=== PATIENT | female | born 1995 | race African-American/Black ===

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

== ENCOUNTER 2017-08-23 09:18 | Emergency (ER) | payer MEDICAID ==
[2017-08-23 09:36] LABS: ABSOLUTE EOSINOPHILS # (AUTO) 0.2 10^3/uL (0.0-0.6); ABSOLUTE LYMPHOCYTES (AUTO) 2.6 10^3/uL (0.5-4.7); ABSOLUTE MONOCYTES (AUTO) 0.7 10^3/uL (0.1-1.4); BASOPHILS % (AUTO) 0.2 % (0-2); EOSINOPHILS % (AUTO) 3.7 % (0-6); HEMATOCRIT 35.7 % (36.0-47.0); HEMOGLOBIN 11.4 g/dL (12.0-15.5); MEAN CORPUSCULAR HEMOGLOBIN 27.4 pg (27.0-33.4); MEAN CORPUSCULAR HGB CONC 31.9 g/dL (32.0-36.0); MEAN CORPUSCULAR VOLUME 86 fl (80-97); MONOCYTES % (AUTO) 12.1 % (3-13); PLATELET COUNT 282 10^3/uL (150-450); RED BLOOD COUNT 4.15 10^6/uL (3.72-5.28); RED CELL DISTRIBUTION WIDTH 16.1 % (11.5-14.0); TOTAL CELLS COUNTED % (AUTO) 100 %; WHITE BLOOD COUNT 5.5 10^3/uL (4.0-10.5)
[2017-08-23 09:50] LABS: ALANINE AMINOTRANSFERASE 23 U/L (9-52); ALBUMIN 4.3 g/dL (3.5-5.0); ALKALINE PHOSPHATASE 32 U/L (38-126); ANION GAP 14 (5-19); ASPARTATE AMINO TRANSFERASE 21 U/L (14-36); BILIRUBIN,DIRECT 0.3 mg/dL (0.0-0.4); BILIRUBIN,TOTAL 0.4 mg/dL (0.2-1.3); BLOOD UREA NITROGEN 14 mg/dL (7-20); CALCIUM 9.6 mg/dL (8.4-10.2); CARBON DIOXIDE 24 mmol/L (22-30); CHLORIDE 107 mmol/L (98-107); GLUCOSE 73 mg/dL (75-110); POTASSIUM 4.5 mmol/L (3.6-5.0); SODIUM 145.3 mmol/L (137-145); TOTAL PROTEIN 7.8 g/dL (6.3-8.2)
[2017-08-23 10:48] LABS: RBCS (WET MOUNT) 4+ RBCS SEEN; T.VAGINALIS (WET MOUNT) NO TRICHOMONAS SEEN; WBCS (WET MOUNT) RARE WBCS SEEN; YEAST (WET MOUNT) NO YEAST SEEN
[2017-08-23 10:52] LABS: APPEARANCE,URINE CLOUDY; BILIRUBIN,URINE NEGATIVE (NEGATIVE); COLOR,URINE YELLOW; GLUCOSE, URINE NEGATIVE (NEGATIVE); KETONES,URINE NEGATIVE (NEGATIVE); LEUKOCYTE ESTERASE,URINE LARGE (NEGATIVE); NITRITE,URINE NEGATIVE (NEGATIVE); PROTEIN,URINE NEGATIVE (NEGATIVE); URINE SPECIFIC GRAVITY 1.012; UROBILINOGEN,URINE NEGATIVE mg/dL (<2.0)
--- NOTE | 2017-08-23 10:59 | ER Document Report ---
ED General - General Chief Complaint: Vaginal Bleeding Stated Complaint: VAGINAL BLEEDING Time Seen by Provider: 08/23/17 09:22 Mode of Arrival: Ambulatory Information source: Patient Notes: 22-year-old female presents with complaints of vaginal bleeding that started this morning. Patient notes she has taken 3 home test in the past week have been positive, she is concerned about a miscarriage, patient called EMS from work for her bleeding. Patient denies any fevers or chills TRAVEL OUTSIDE OF THE [place] IN LAST 30 DAYS: No - HPI Onset: Just prior to arrival Onset/Duration: Sudden Quality of pain: Cramping Severity: Mild Pain Level: 1 Associated symptoms: Other Exacerbated by: Denies Relieved by: Denies Similar symptoms previously: No Recently seen / treated by doctor: No - Related Data Allergies/Adverse Reactions: No Known Allergies Allergy (Verified 08/23/17 11:00) Past Medical History - Social History Smoking Status: Never Smoker Cigarette use (# per day): No Chew tobacco use (# tins/day): No Smoking Education Provided: No Frequency of alcohol use: None Drug Abuse: None Family History: Other - Adopted Patient has suicidal ideation: No Patient has homicidal ideation: No - Past Medical History Cardiac Medical History: Denies: Hx Coronary Artery Disease, Hx Heart Attack, Hx Hypertension Pulmonary Medical History: Reports: Hx Asthma - inhalers if needed Denies: Hx Bronchitis, Hx COPD, Hx Pneumonia Neurological Medical History: Denies: Hx Cerebrovascular Accident, Hx Seizures Renal/ Medical History: Denies: Hx Peritoneal Dialysis Musculoskeltal Medical History: Denies Hx Arthritis Past Surgical History: Reports: Hx Adenoidectomy, Hx Section, Hx Tonsillectomy - Immunizations Immunizations up to date: Yes Hx Diphtheria, Pertussis, Tetanus Vaccination: Yes Review of Systems - Review of Systems Notes: REVIEW OF SYSTEMS: CONSTITUTIONAL : Denies fever, chills, or sweats. Denies recent illness. EENT: Denies eye, ear, throat, or mouth pain or symptoms. Denies nasal or sinus congestion or discharge. Denies throat, tongue, or mouth swelling or difficulty swallowing. CARDIOVASCULAR: Denies chest pain. Denies palpitations or racing or irregular heart beat. Denies ankle edema. RESPIRATORY: Denies cough, cold, or chest congestion. Denies shortness of breath, difficulty breathing, or wheezing. GASTROINTESTINAL: Denies abdominal pain or distention. Denies nausea, vomiting , or diarrhea. Denies blood in vomitus, stools, or per rectum. Denies black, tarry stools. Denies constipation. GENITOURINARY: Denies difficulty urinating, painful urination, burning, frequency, blood in urine, or discharge. FEMALE GENITOURINARY: Admits vaginal bleeding MUSCULOSKELETAL: Denies back or neck pain or stiffness. Denies joint pain or swelling. SKIN: Denies rash, lesions or sores. HEMATOLOGIC : Denies easy bruising or bleeding. LYMPHATIC: Denies swollen, enlarged glands. NEUROLOGICAL: Denies confusion or altered mental status. Denies passing out or loss of consciousness. Denies dizziness or lightheadedness. Denies headache. Denies weakness or paralysis or loss of use of either side. Denies problems with gait or speech. Denies sensory loss, numbness, or tingling. Denies seizures. PSYCHIATRIC: Denies anxiety or stress. Denies depression, suicidal ideation, or homicidal ideation. ALL OTHER SYSTEMS REVIEWED AND NEGATIVE. PHYSICAL EXAMINATION: GENERAL: Well-appearing, well-nourished and in no acute distress. HEAD: Atraumatic, normocephalic. EYES: Pupils equal round and reactive to light, extraocular movements intact, conjunctiva are normal. ENT: Nares patent, oropharynx clear without exudates. Moist mucous membranes. NECK: Normal range of motion, supple without lymphadenopathy LUNGS: Breath sounds clear to auscultation bilaterally and equal. No wheezes rales or rhonchi. HEART: Regular rate and rhythm without murmurs ABDOMEN: Soft, nontender, nondistended abdomen. No guarding, no rebound. No masses appreciated. Female : Pelvic examination performed with nurse in the room notes both new and old blood Musculoskeletal: Normal range of motion, no pitting or edema. No cyanosis. NEUROLOGICAL: Cranial nerves grossly intact. Normal speech, normal gait. Normal sensory, motor exams PSYCH: Normal mood, normal affect. SKIN: Warm, Dry, normal turgor, no rashes or lesions noted. Dictation was performed using Tr[employer] recognition software Physical Exam - Vital signs Vitals: Temp Pulse Resp BP Pulse Ox 98.1 F 88 18 109/64 99 08/23/17 09:45 08/23/17 09:45 08/23/17 09:45 08/23/17 09:45 08/23/17 09:45 Course - Re-evaluation Re-evalutation: 08/23/17 14:42 Patient's hCG was negative, she is not , this is her menses, she is otherwise stable, wet prep and GC chlamydia were negative as well After performing a Medical Screening Examination, I estimate there is LOW risk for ACUTE APPENDICITIS, BOWEL OBSTRUCTION, ACUTE CHOLECYSTITIS, PERFORATED DIVERTICULITIS, INCARCERATED HERNIA, PANCREATITIS, PELVIC INFLAMMATORY DISEASE, PERFORATED ULCER, ECTOPIC , or TUBO-OVARIAN ABSCESS, thus I consider the discharge disposition reasonable. Also, there is no evidence or peritonitis , sepsis, or toxicity. I have reevaluated this patient multiple times and no significant life threatening changes are noted. The patient and I have discussed the diagnosis and risks, and we agree with discharging home with close follow-up with the understanding that symptoms and presentations can change. We also discussed returning to the Emergency Department immediately if new or worsening symptoms occur. We have discussed the symptoms which are most concerning (e.g., bloody stool, fever, changing or worsening pain, vomiting) that necessitate immediate return. - Vital Signs Vital signs: Temp Pulse Resp BP Pulse Ox 98.1 F 69 18 119/80 100 08/23/17 10:54 08/23/17 10:54 08/23/17 10:54 08/23/17 10:54 08/23/17 10:54 - Laboratory Result Diagrams: 08/23/17 09:15 08/23/17 09:15 Laboratory results interpreted by me: 08/23/17 08/23/17 08/23/17 09:15 09:15 10:04 Hgb 11.4 L Hct 35.7 L MCHC 31.9 L RDW 16.1 H Seg Neutrophils % 37.0 L Lymphocytes % 47.0 H Sodium 145.3 H Glucose 73 L Alkaline Phosphatase 32 L Urine Blood LARGE H Ur Leukocyte Esterase LARGE H Discharge - Discharge Clinical Impression: Negative test, Vaginal bleeding Condition: Stable Disposition: HOME, SELF-CARE Instructions: Vaginal Bleeding ([facility]) Referrals: SMITHA GREER MD [Primary Care Provider] - Follow up as needed
[2017-08-23 11:22] VITALS: BP 109/64
[2017-08-23 12:10] LABS: CHLAM PCR NOT DETECTED (NOT DETECT); GON PCR NOT DETECTED (NOT DETECT)
== END 2017-08-23 11:22 | disposition home or self-care (01) ==
LOC: ER 09:18
DX: Z32.02 Encounter for pregnancy test, result negative (principal); N93.9 Abnormal uterine and vaginal bleeding, unspecified
CPT/HCPCS: 36415; 80053; 81001; 84702; 85025; 87210; 87491; 87591; 99284

== ENCOUNTER 2017-10-31 18:34 | Emergency (ER) | payer MEDICAID ==
[2017-10-31 18:43] VITALS: BP 119/74
[2017-10-31] MEDS ORDERED: ONDANSETRON 4 MG TAB.RAPDIS PO ONE (19:01)
--- NOTE | 2017-10-31 19:02 | ER Document Report ---
ED Medical Screen (RME) - General Chief Complaint: Vomiting Stated Complaint: VOMITING,DIZZYNESS Time Seen by Provider: 10/31/17 18:57 Mode of Arrival: Wheelchair Information source: Patient Notes: 22 y.o female with a PMHx of asthma presents to the ED via EMS with generalized weakness, dizziness and vomiting of onset yesterday. She reports a total 6 episodes of vomiting and also notes upper abd pain which she describes as a cramping. EMS reports a BGL of 57 and gave oral glucose en route. Pt denies any travel out of the country, camping or any contact with others of similar sx. Pt reports a PSHx of hernia repair. Pt denies any other medical issues. I have greeted and performed a rapid initial assessment of the patient. A comprehensive ED assessment and evaluation of the patient, analysis of test results, and completion of the medical decision making process will be conducted by additional ED providers. PHYSICAL EXAM: General: Alert. HEENT: Normocephalic. Atraumatic. Neck: Supple. Cardiovascular: RRR Respiratory: CTAB Abdominal: No distension. mild mid abd tenderness consistent with hx of hernia surgery. Extremities: Moves all four extremities. Neurological: Normal cognition. AAOx4. Normal speech. Psychological: Normal affect. Normal Mood. Skin: Warm. Dry. Normal color. TRAVEL OUTSIDE OF THE [place] IN LAST 30 DAYS: No - Related Data Allergies/Adverse Reactions: No Known Allergies Allergy (Verified 10/31/17 19:02) Past Medical History - Past Medical History Cardiac Medical History: Denies: Hx Coronary Artery Disease, Hx Heart Attack, Hx Hypertension Pulmonary Medical History: Reports: Hx Asthma - inhalers if needed Denies: Hx Bronchitis, Hx COPD, Hx Pneumonia Neurological Medical History: Denies: Hx Cerebrovascular Accident, Hx Seizures Renal/ Medical History: Denies: Hx Peritoneal Dialysis Musculoskeltal Medical History: Denies Hx Arthritis Past Surgical History: Reports: Hx Adenoidectomy, Hx Section, Hx Tonsillectomy - Immunizations Immunizations up to date: Yes Hx Diphtheria, Pertussis, Tetanus Vaccination: Yes Physical Exam - Vital signs Vitals: Pulse Resp BP Pulse Ox 77 16 119/74 100 10/31/17 18:41 10/31/17 18:41 10/31/17 18:41 10/31/17 18:41 Course - Vital Signs Vital signs: Temp Pulse Resp BP Pulse Ox 77 16 119/74 100 10/31/17 18:41 10/31/17 18:41 10/31/17 18:41 10/31/17 18:41 Doctor's Discharge - Discharge Referrals: SMITHA GREER MD [Primary Care Provider] - Follow up as needed Scribe Documentation - Scribe Written by Scribe:: Brant Montero 10/31/17 400 acting as scribe for :: Carlos
[2017-10-31] MEDS ORDERED: NORMAL SALINE 1000 ML 1,000 ML IV ONE (20:08)
--- NOTE | 2017-10-31 20:12 | ER Document Report ---
ED General - General Chief Complaint: Vomiting Stated Complaint: VOMITING,DIZZYNESS Time Seen by Provider: 10/31/17 18:57 Mode of Arrival: Wheelchair TRAVEL OUTSIDE OF THE [place] IN LAST 30 DAYS: No - HPI Notes: Patient is a 22-year-old female no significant past medical history who presents to the ED complaining of intermittent generalized abdominal cramping, nausea/vomiting 1 day. Pt did receive glucose via EMS on her way in for a glucose of 57. Pt has had occ HUANG's, but currently does not have one. Patient states that she vomited twice yesterday and 4 times today. She has had a decreased p.o. intake. She is urinating normally and having normal bowel movements. She has not had any hematemesis. Patient states that she currently does not have any abdominal pain. Her last menstrual period was 2-3 weeks ago. She has not had any vaginal discharge, odor, or bleeding. Denies any drug allergies. No other concerns or complaints. Denies any current headache, fever , head injury, neck pain, URI, sore throat, chest pain, palpitations, syncope, cough, shortness of breath, wheeze, dyspnea, diarrhea, urinary retention, dysuria, hematuria, back pain, joint pain, or rash. - Related Data Allergies/Adverse Reactions: No Known Allergies Allergy (Verified 10/31/17 19:02) Past Medical History - General Information source: Patient - Social History Smoking Status: Current Every Day Smoker Chew tobacco use (# tins/day): No Frequency of alcohol use: Rare Drug Abuse: None Family History: Other - Adopted Patient has suicidal ideation: No Patient has homicidal ideation: No - Past Medical History Cardiac Medical History: Denies: Hx Coronary Artery Disease, Hx Heart Attack, Hx Hypertension Pulmonary Medical History: Reports: Hx Asthma - inhalers if needed Denies: Hx Bronchitis, Hx COPD, Hx Pneumonia Neurological Medical History: Denies: Hx Cerebrovascular Accident, Hx Seizures Renal/ Medical History: Denies: Hx Peritoneal Dialysis Musculoskeltal Medical History: Denies Hx Arthritis Past Surgical History: Reports: Hx Adenoidectomy, Hx Section, Hx Tonsillectomy - Immunizations Immunizations up to date: Yes Hx Diphtheria, Pertussis, Tetanus Vaccination: Yes Review of Systems - Review of Systems -: Yes All other systems reviewed and negative Physical Exam - Vital signs Vitals: Pulse Resp BP Pulse Ox 77 16 119/74 100 10/31/17 18:41 10/31/17 18:41 10/31/17 18:41 10/31/17 18:41 - Notes Notes: PHYSICAL EXAMINATION: GENERAL: Well-appearing, well-nourished and in no acute distress. A&Ox4. Answers questions appropriately. Moving around in no apparent discomfort. HEAD: Atraumatic, normocephalic. EYES: Pupils equal round and reactive to light, extraocular movements intact, sclera anicteric, conjunctiva are normal. ENT: Nares patent and without discharge. oropharynx clear without exudates. No tonsilar hypertrophy or erythema. Moist mucous membranes. NECK: Normal range of motion, supple without lymphadenopathy. No rigidity/ meningismus. LUNGS: Breath sounds clear to auscultation bilaterally and equal. No wheezes rales or rhonchi. HEART: Regular rate and rhythm without murmurs, rubs, gallops. ABDOMEN: Soft, nontender, nondistended abdomen. No guarding, no rebound. No masses appreciated. Normal bowel sounds present. No CVA tenderness bilaterally. : deferred Musculoskeletal: FROM to passive/active. Strength 5+/5. Extremities: No cyanosis, clubbing, or edema b/l. Peripheral pulses 2+. Capillary refill less than 3 seconds. NEUROLOGICAL: Normal speech, normal gait. PSYCH: Normal mood, normal affect. SKIN: Warm, Dry, normal turgor, no rashes or lesions noted. Course - Re-evaluation Re-evalutation: 10/31/17 21:07 Patient is an afebrile, well-hydrated, 22-year-old female who presents to the ED with nausea and vomiting, suspect viral. Vitals are acceptable without any significant tachycardia, tachypnea, or hypoxia. PE is otherwise unremarkable. Patient's abdomen is soft and nontender. Patient has not had any episodes of emesis in the ED. Patient was given Zofran and fluids. Patient states that she is feeling much better. Patient is nontoxic-appearing and is tolerating p.o. without any difficulties. CBC, CMP, lipase, hCG, urinalysis were unremarkable for any acute pathology. Urine cultures pending. No other labs or imaging warranted at this time based on H&P. Low suspicion/risk for acute appendicitis , bowel obstruction, acute cholecystitis, acute cholangitis, perforated diverticulitis, incarcerated hernia, pancreatitis, perforated ulcer, peritonitis , sepsis, pelvic inflammatory disease, ectopic , tubo-ovarian abscess, ovarian torsion, or other systemic emergent condition at this time. Patient is aware that her condition can change from initial presentation and she needs to monitor symptoms closely and seek medical attention if any acute changes. I will send her home with a prescription for Zofran. Conservative measures otherwise for symptoms. Recheck with your PCM in 2-3 days. Consider consult with a lamp developer. Return to the ED with any worsening/concerning symptoms otherwise as reviewed in discharge. Patient is in agreement. - Vital Signs Vital signs: Temp Pulse Resp BP Pulse Ox 77 16 119/74 100 10/31/17 18:41 10/31/17 18:41 10/31/17 18:41 10/31/17 18:41 - Laboratory Result Diagrams: 10/31/17 20:15 10/31/17 20:15 Laboratory results interpreted by me: 10/31/17 10/31/17 10/31/17 20:15 20:15 20:15 RDW 17.4 H Seg Neutrophils % 38.8 L Lymphocytes % 46.7 H Sodium 145.6 H AST 38 H Total Protein 8.9 H Ur Leukocyte Esterase SMALL H Discharge - Discharge Clinical Impression: Nausea and vomiting Qualifiers: Vomiting type: unspecified Vomiting Intractability: non-intractable Qualified Code(s): R11.2 - Nausea with vomiting, unspecified Condition: Stable Disposition: HOME, SELF-CARE Instructions: Antinausea Medication ([facility]), Vomiting ([facility]) Additional Instructions: Maintain adequate fluid and food intake [place] diet ([employer] Bananas, rice, apples, toast, etc Zofran as needed tylenol if needed Monitor for any worsening symptoms Make sure you are staying hydrated enough to urinate and have normal BM's Recheck with your PCM in 2-3 days Consider consult with Gastroenterology for ongoing/worsening symptoms Return to the ED with any worsening symptoms and/or development of fever, headache, chest pain, palpitations, syncope, shortness of breath, trouble breathing, abdominal pain, n/v/d, blood in stool/urine, weakness, or other worsening symptoms that are concerning to you. Prescriptions: Ondansetron [Zofran Odt 4 mg Tablet] 1 - 2 tab PO Q4H PRN #15 tab.rapdis PRN Reason: For Nausea/Vomiting Referrals: YAIMA CABELLO MD [ACTIVE STAFF] - Follow up as needed
[2017-10-31 20:35] LABS: ABSOLUTE BASOPHILS # (AUTO) 0.1 10^3/uL (0.0-0.2); ABSOLUTE EOSINOPHILS # (AUTO) 0.3 10^3/uL (0.0-0.6); ABSOLUTE LYMPHOCYTES (AUTO) 2.5 10^3/uL (0.5-4.7); ABSOLUTE MONOCYTES (AUTO) 0.4 10^3/uL (0.1-1.4); ABSOLUTE NEUT (AUTO) 2.1 10^3/uL (1.7-8.2); APPEARANCE,URINE CLEAR; BASOPHILS % (AUTO) 1.1 % (0-2); BILIRUBIN,URINE NEGATIVE (NEGATIVE); COLOR,URINE YELLOW; EOSINOPHILS % (AUTO) 5.2 % (0-6); GLUCOSE, URINE NEGATIVE (NEGATIVE); HEMATOCRIT 37.8 % (36.0-47.0); HEMOGLOBIN 12.2 g/dL (12.0-15.5); KETONES,URINE NEGATIVE (NEGATIVE); LEUKOCYTE ESTERASE,URINE SMALL (NEGATIVE); LYMPHOCYTES % (AUTO) 46.7 % (13-45); MEAN CORPUSCULAR HEMOGLOBIN 27.9 pg (27.0-33.4); MEAN CORPUSCULAR HGB CONC 32.2 g/dL (32.0-36.0); MEAN CORPUSCULAR VOLUME 87 fl (80-97); MONOCYTES % (AUTO) 8.2 % (3-13); NITRITE,URINE NEGATIVE (NEGATIVE); PLATELET COUNT 242 10^3/uL (150-450); PROTEIN,URINE NEGATIVE (NEGATIVE); RED BLOOD COUNT 4.37 10^6/uL (3.72-5.28); RED CELL DISTRIBUTION WIDTH 17.4 % (11.5-14.0); SEGMENTED NEUTROPHILS % (AUTO) 38.8 % (42-78); TOTAL CELLS COUNTED % (AUTO) 100 %; URINE SPECIFIC GRAVITY 1.006; UROBILINOGEN,URINE NEGATIVE mg/dL (<2.0); WHITE BLOOD COUNT 5.4 10^3/uL (4.0-10.5)
[2017-10-31 21:01] LABS: ALANINE AMINOTRANSFERASE 15 U/L (9-52); ALBUMIN 4.9 g/dL (3.5-5.0); ALKALINE PHOSPHATASE 46 U/L (38-126); ANION GAP 16 (5-19); ASPARTATE AMINO TRANSFERASE 38 U/L (14-36); BILIRUBIN,DIRECT 0.4 mg/dL (0.0-0.4); BILIRUBIN,TOTAL 0.6 mg/dL (0.2-1.3); BLOOD UREA NITROGEN 10 mg/dL (7-20); CALCIUM 9.9 mg/dL (8.4-10.2); CARBON DIOXIDE 25 mmol/L (22-30); CHLORIDE 105 mmol/L (98-107); GLUCOSE 81 mg/dL (75-110); LIPASE 40.7 U/L (23-300); POTASSIUM 4.1 mmol/L (3.6-5.0); SODIUM 145.6 mmol/L (137-145); TOTAL PROTEIN 8.9 g/dL (6.3-8.2)
[2017-10-31] MEDS ORDERED: ONDANSETRON ODT 4 MG TAB (6 TAB/ER DISP) PO PRN (21:09)
== END 2017-10-31 21:33 | disposition home or self-care (01) ==
LOC: ER 18:34
DX: R11.2 Nausea with vomiting, unspecified (principal); R51 Headache; R10.84 Generalized abdominal pain; F17.200 Nicotine dependence, unspecified, uncomplicated; J45.909 Unspecified asthma, uncomplicated
CPT/HCPCS: 99284; 96360; 36415; 87086; 83690; 84703; 85025; 87088; 80053; 81001; 87186; S0119; J7030

== ENCOUNTER 2018-02-15 18:44 | Emergency (ER) | payer SELFPAY ==
[2018-02-15 18:56] VITALS: BP 113/88
[2018-02-15] MEDS ORDERED: LACTULOSE SYRUP 20 GM/30 ML UDCUP PO ONE (19:17)
--- NOTE | 2018-02-15 19:22 | ER Document Report ---
ED GI/ - General Chief Complaint: Abdominal Pain Stated Complaint: ABDOMINAL PAIN Time Seen by Provider: 02/15/18 19:17 Mode of Arrival: Ambulatory Information source: Patient Notes: Chief complaint: Umbilical pain History of complain:( obtained from----patient) 23 years old female who is constipated for about a week has no bowel movement, presents today with umbilical pain in the reducible hernia. She had an umbilical hernia repaired couple of years ago. Denies any nausea vomiting fever chills or other constitutional symptoms. Denies any dysuria frequency urgency. She describes a hernia as he comes in goes meaning pops and then pops out according to her words. Onset: As above Duration: Gradual Severity: Mild Quality: Sharp Context: Umbilical Exacerbating factor and relieving factors: Screening REVIEW OF SYSTEMS: CONSTITUTIONAL : Denies fever, chills, or sweats. Denies recent illness. EENT: Denies eye, ear, throat, or mouth pain or symptoms. Denies nasal or sinus congestion or discharge. Denies throat, tongue, or mouth swelling or difficulty swallowing. CARDIOVASCULAR: Denies chest pain. Denies palpitations or racing or irregular heart beat. Denies ankle edema. RESPIRATORY: Denies cough, cold, or chest congestion. Denies shortness of breath, difficulty breathing, or wheezing. GASTROINTESTINAL: Denies distention. Denies nausea, vomiting, or diarrhea. Denies blood in vomitus, stools, or per rectum. Denies black, tarry stools. Denies constipation. GENITOURINARY: Denies difficulty urinating, painful urination, burning, frequency, blood in urine, or discharge. FEMALE GENITOURINARY: Denies vaginal bleeding, heavy or abnormal periods, irregular periods. Denies vaginal discharge or odor. MUSCULOSKELETAL: Denies back or neck pain or stiffness. Denies joint pain or swelling. SKIN: Denies rash, lesions or sores. HEMATOLOGIC : Denies easy bruising or bleeding. LYMPHATIC: Denies swollen, enlarged glands. NEUROLOGICAL: Denies confusion or altered mental status. Denies passing out or loss of consciousness. Denies dizziness or lightheadedness. Denies headache. Denies weakness or paralysis or loss of use of either side. Denies problems with gait or speech. Denies sensory loss, numbness, or tingling. Denies seizures. PSYCHIATRIC: Denies anxiety or stress. Denies depression, suicidal ideation, or homicidal ideation. ALL OTHER SYSTEMS REVIEWED AND NEGATIVE. PHYSICAL EXAMINATION: GENERAL: Well-appearing, well-nourished and in no acute distress. HEAD: Atraumatic, normocephalic. EYES: Pupils equal round and reactive to light, extraocular movements intact, conjunctiva are normal. ENT: Nares patent, oropharynx clear without exudates. Moist mucous membranes. NECK: Normal range of motion, supple without lymphadenopathy LUNGS: Breath sounds clear to auscultation bilaterally and equal. No wheezes rales or rhonchi. HEART: Regular rate and rhythm without murmurs ABDOMEN: Soft, nontender, nondistended abdomen. No guarding, no rebound. No masses appreciated. Umbilical region there is a small size of a piea hernial protrusion, which is reducible. Examination of genitals-deferred Musculoskeletal: Normal range of motion, no pitting or edema. No cyanosis. NEUROLOGICAL: Cranial nerves grossly intact. Normal speech, normal gait. Normal sensory, motor exams PSYCH: Normal mood, normal affect. SKIN: Warm, Dry, normal turgor, no rashes or lesions noted. Dictation was performed using [employer] voice recognition software TRAVEL OUTSIDE OF THE [place] IN LAST 30 DAYS: No - HPI Notes: 02/15/18 19:20 Dictated - Related Data Allergies/Adverse Reactions: No Known Allergies Allergy (Verified 02/15/18 18:45) Past Medical History - Social History Smoking Status: Never Smoker Chew tobacco use (# tins/day): No Smoking Education Provided: No Frequency of alcohol use: Rare Drug Abuse: None Lives with: Family Family History: Reviewed & Not Pertinent, Other - Adopted - Past Medical History Cardiac Medical History: Denies: Hx Coronary Artery Disease, Hx Heart Attack, Hx Hypertension Pulmonary Medical History: Reports: Hx Asthma - inhalers if needed Denies: Hx Bronchitis, Hx COPD, Hx Pneumonia Neurological Medical History: Denies: Hx Cerebrovascular Accident, Hx Seizures Renal/ Medical History: Denies: Hx Peritoneal Dialysis Musculoskeletal Medical History: Denies Hx Arthritis Past Surgical History: Reports: Hx Adenoidectomy, Hx Section, Hx Tonsillectomy - Immunizations Immunizations up to date: Yes Hx Diphtheria, Pertussis, Tetanus Vaccination: Yes Review of Systems - Review of Systems Notes: Dictated Physical Exam - Vital signs Vitals: Temp Pulse Resp BP Pulse Ox 97.8 F 75 18 113/88 H 100 02/15/18 18:54 02/15/18 18:54 02/15/18 18:54 02/15/18 18:54 02/15/18 18:54 - Notes Notes: Dictated Course - Re-evaluation Re-evalutation: 02/15/18 19:20 She was clearly explain what it is and has to follow-up with the surgeon. Also not to strain - Vital Signs Vital signs: Temp Pulse Resp BP Pulse Ox 97.8 F 75 18 113/88 H 100 02/15/18 18:54 02/15/18 18:54 02/15/18 18:54 02/15/18 18:54 02/15/18 18:54 Discharge - Discharge Clinical Impression: Irreducible umbilical hernia, Constipation by delayed colonic transit Condition: Fair Disposition: HOME, SELF-CARE Instructions: Umbilical Hernia ([facility]), Constipation ([facility]) Prescriptions: Lactulose [Cephulac Syrup 20 gm/30 ml Udcup] 20 gm PO BID #120 udc Referrals: LOLY AGUILAR MD [Primary Care Provider] - Follow up as needed
== END 2018-02-15 19:44 | disposition home or self-care (01) ==
LOC: ER 18:44
DX: K59.01 Slow transit constipation (principal); K42.9 Umbilical hernia without obstruction or gangrene; J45.909 Unspecified asthma, uncomplicated
CPT/HCPCS: 99283

== ENCOUNTER 2018-03-22 15:21 | Emergency (ER) | payer SELFPAY ==
--- NOTE | 2018-03-22 16:43 | ER Document Report ---
ED GI/ - General Chief Complaint: Pelvic Pain Stated Complaint: ABDOMINAL PAIN Time Seen by Provider: 03/22/18 16:27 Mode of Arrival: Ambulatory Information source: Patient, [facility] Records Notes: 23-year-old female patient last menstrual period 01/17/2018, recently had a positive test and confirmed this at the health department. She reports 2 days of pelvic cramping without bleeding. She is A0. TRAVEL OUTSIDE OF THE [place] IN LAST 30 DAYS: No - Related Data Allergies/Adverse Reactions: No Known Allergies Allergy (Verified 02/15/18 18:45) Past Medical History - General Information source: Patient, [facility] Records Last Menstrual Period: jan 17 - Social History Smoking Status: Never Smoker Cigarette use (# per day): No Chew tobacco use (# tins/day): No Frequency of alcohol use: None Drug Abuse: None Occupation: Unemployed Lives with: Family Family History: Reviewed & Not Pertinent, Other - Adopted Patient has suicidal ideation: No Patient has homicidal ideation: No Pulmonary Medical History: Reports: Hx Asthma - inhalers if needed Past Surgical History: Reports: Hx Abdominal Surgery - hernia repair, Hx Adenoidectomy, Hx Section, Hx Tonsillectomy - Immunizations Immunizations up to date: Yes Hx Diphtheria, Pertussis, Tetanus Vaccination: Yes Review of Systems - Review of Systems Constitutional: No symptoms reported EENT: No symptoms reported Cardiovascular: No symptoms reported Respiratory: No symptoms reported Gastrointestinal: No symptoms reported Genitourinary: No symptoms reported Female Genitourinary: See HPI, Musculoskeletal: No symptoms reported Skin: No symptoms reported Hematologic/Lymphatic: No symptoms reported Neurological/Psychological: No symptoms reported Physical Exam - Vital signs Vitals: Temp Pulse Resp BP Pulse Ox 97.7 F 95 20 119/71 100 03/22/18 15:50 03/22/18 15:50 03/22/18 15:50 03/22/18 15:50 03/22/18 15:50 - General General appearance: Appears well, Alert In distress: None - HEENT Head: Normocephalic, Atraumatic Eyes: Normal Pupils: PERRL - Respiratory Respiratory status: No respiratory distress Breath sounds: Normal - Cardiovascular Rhythm: Regular Heart sounds: Normal auscultation Murmur: No - Abdominal Inspection: Normal Bowel sounds: Normal - Back Back: Normal - Extremities General upper extremity: Normal inspection General lower extremity: Normal inspection - Neurological Neuro grossly intact: Yes - Psychological Associated symptoms: Normal affect, Normal mood - Skin Skin Temperature: Warm Skin Moisture: Dry Skin Color: Normal Course - Vital Signs Vital signs: Temp Pulse Resp BP Pulse Ox 97.7 F 95 20 119/71 100 03/22/18 15:50 03/22/18 15:50 03/22/18 15:50 03/22/18 15:50 03/22/18 15:50 - Laboratory Result Diagrams: 03/22/18 17:15 03/22/18 17:15 Laboratory results interpreted by me: 03/22/18 03/22/18 03/22/18 15:55 17:15 17:15 Hgb 11.4 L Hct 34.4 L RDW 15.7 H Monocytes % 17.6 H Creatinine 0.49 L Serum HCG, Qual Beta HCG, Quant Urine Ketones TRACE H Urine Urobilinogen 2.0 H Urine Ascorbic Acid 20 H 03/22/18 03/22/18 17:15 17:15 Hgb Hct RDW Monocytes % Creatinine Serum HCG, Qual POSITIVE H Beta HCG, Quant 73742.00 H Urine Ketones Urine Urobilinogen Urine Ascorbic Acid Discharge - Discharge Clinical Impression: Intrauterine , Pelvic cramping Condition: Stable Disposition: HOME, SELF-CARE Additional Instructions: Your ultrasound shows a measuring 6 weeks and 4 days. There is no pole seen. A pole is usually seen at this point in a . Based on your last menstrual period, you should be approximately 9 weeks . The hormone level is also low for a this for a long period You will need to follow-up with [facility] Sunday to repeat your hormone level and ultrasound to determine whether or not the fetus has stopped growing. RETURN TO THE EMERGENCY ROOM IF ANY NEW OR WORSENING SYMPTOMS. Referrals: LOLY AGUILAR MD [Primary Care Provider] - Follow up as needed [facility] [Provider Group] - 03/25/18
[2018-03-22 17:28] LABS: ABSOLUTE EOSINOPHILS # (AUTO) 0.1 10^3/uL (0.0-0.6); ABSOLUTE MONOCYTES (AUTO) 0.9 10^3/uL (0.1-1.4); ABSOLUTE NEUT (AUTO) 3.1 10^3/uL (1.7-8.2); BASOPHILS % (AUTO) 0.6 % (0-2); EOSINOPHILS % (AUTO) 1.8 % (0-6); HEMATOCRIT 34.4 % (36.0-47.0); HEMOGLOBIN 11.4 g/dL (12.0-15.5); LYMPHOCYTES % (AUTO) 19.3 % (13-45); MEAN CORPUSCULAR HEMOGLOBIN 28.9 pg (27.0-33.4); MEAN CORPUSCULAR VOLUME 88 fl (80-97); MONOCYTES % (AUTO) 17.6 % (3-13); PLATELET COUNT 205 10^3/uL (150-450); RED BLOOD COUNT 3.94 10^6/uL (3.72-5.28); RED CELL DISTRIBUTION WIDTH 15.7 % (11.5-14.0); SEGMENTED NEUTROPHILS % (AUTO) 60.7 % (42-78); TOTAL CELLS COUNTED % (AUTO) 100 %
[2018-03-22 17:32] LABS: APPEARANCE,URINE CLOUDY; BILIRUBIN,URINE NEGATIVE (NEGATIVE); GLUCOSE, URINE NEGATIVE (NEGATIVE); KETONES,URINE TRACE mg/dL (NEGATIVE); LEUKOCYTE ESTERASE,URINE NEGATIVE (NEGATIVE); NITRITE,URINE NEGATIVE (NEGATIVE); PROTEIN,URINE NEGATIVE (NEGATIVE); URINE SPECIFIC GRAVITY 1.021
[2018-03-22 17:36] LABS: COLOR,URINE YELLOW
[2018-03-22 17:47] LABS: ALANINE AMINOTRANSFERASE 19 U/L (9-52); ALBUMIN 4.4 g/dL (3.5-5.0); ALKALINE PHOSPHATASE 43 U/L (38-126); ANION GAP 13 (5-19); ASPARTATE AMINO TRANSFERASE 18 U/L (14-36); BILIRUBIN,DIRECT 0.2 mg/dL (0.0-0.4); BILIRUBIN,TOTAL 0.3 mg/dL (0.2-1.3); BLOOD UREA NITROGEN 11 mg/dL (7-20); CALCIUM 9.9 mg/dL (8.4-10.2); CARBON DIOXIDE 24 mmol/L (22-30); CHLORIDE 103 mmol/L (98-107); GLUCOSE 80 mg/dL (75-110); POTASSIUM 4.3 mmol/L (3.6-5.0); SODIUM 139.9 mmol/L (137-145); TOTAL PROTEIN 7.8 g/dL (6.3-8.2)
--- NOTE | 2018-03-22 18:49 | RADIOLOGY REPORT (SQ) ---
EXAM DESCRIPTION: U/S OB TRANSVAGINAL W/O DOP COMPLETED DATE/TIME: 03/22/2018 6:37 pm REASON FOR STUDY: LMP 01/17/18, cramps w/o bleeding COMPARISON: None. TECHNIQUE: Transvaginal static and realtime grayscale images acquired of the pelvis. Additional melissa cted spectral and color Doppler images recorded. All images stored on PACs. bHCG: Pending. CLINICAL DATES: LMP 01/17/2018. 9 weeks 1 day PE LIMITATIONS: None. FINDINGS: FETUS: Single Living intrauterine . ULTRASOUND EGA: 6 weeks 4 days by gestational sac size. ULTRASOUND MELANY: 11/11/2018 EFW: Not applicable less than 20 weeks. CRL: Not seen. FHR: Not seen. Beats per minute. SURVEY: Too early to assess. AMNIOTIC FLUID: Adequate amount. PLACENTA: Not yet developed due to early gestation. SUBCHORIONIC BLEED: No SIZE OF BLEED: Not applicable. UTERUS: No masses. No anomalies. CERVICAL LENGTH: 3.9 cm. Closed. RIGHT ADNEXA: Normal ovary with normal vascular flow. 2.6 x 2.1 x 2.3 cm with a 2.3 x 1.4 x 1.8 cm c yst. No adnexal free fluid. No adnexal masses. LEFT ADNEXA: Ovary not seen. No adnexal free fluid. No adnexal masses. FREE FLUID: None. OTHER: No other significant finding. IMPRESSION: There is a gestation 6 weeks 4 days by gestational sac size. pole is not yet seen . Follow-up as clinically indicated. Trimester of : First - 0 to 13 weeks. TECHNICAL DOCUMENTATION: JOB ID: [id number] [employer]- All Rights Reserved Reading location - IP/workstation name: [email or web address]
[2018-03-22 19:15] VITALS: BP 118/73
== END 2018-03-22 19:30 | disposition home or self-care (01) ==
LOC: ER 15:21
DX: O26.891 Other specified pregnancy related conditions, first trimester (principal); R10.2 Pelvic and perineal pain; R10.9 Unspecified abdominal pain; O99.511 Diseases of the respiratory system complicating pregnancy, first trimester; J45.909 Unspecified asthma, uncomplicated; Z3A.01 Less than 8 weeks gestation of pregnancy
CPT/HCPCS: 36415; 76817; 80053; 81001; 84702; 84703; 85025; 99284

== ENCOUNTER 2018-03-25 11:04 | Emergency (ER) | payer MEDICAID ==
--- NOTE | 2018-03-25 11:45 | ER Document Report ---
ED GI/ - General Chief Complaint: Medical Complaint Stated Complaint: MEDICAL COMPLAINT Time Seen by Provider: 03/25/18 11:37 Mode of Arrival: Ambulatory Information source: Patient, [facility] Records Notes: 23-year-old female patient came to the emergency room for follow-up from a visit on Sunday 3 days ago. At that time she had a history that would suggest a 9-week with some pelvic cramping and no bleeding. An ultrasound showed a 6-week 4-day gestational sac without a pole. HCG level is 27, 457. She was advised to follow-up with [facility]. She did call to try to make an appointment. She comes in here today without any bleeding, and very little cramping. We will repeat her hCG level. I have told her that if it is climbing then she does have a viable , if it is following then she does not. TRAVEL OUTSIDE OF THE [place] IN LAST 30 DAYS: No - Related Data Allergies/Adverse Reactions: No Known Allergies Allergy (Verified 02/15/18 18:45) Past Medical History - General Information source: Patient, [facility] Records - Social History Smoking Status: Never Smoker Cigarette use (# per day): No Chew tobacco use (# tins/day): No Smoking Education Provided: No Frequency of alcohol use: None Drug Abuse: None Lives with: Family, Friend Family History: Reviewed & Not Pertinent, Other - Adopted Pulmonary Medical History: Reports: Hx Asthma - inhalers if needed Past Surgical History: Reports: Hx Abdominal Surgery - hernia repair, Hx Adenoidectomy, Hx Section, Hx Tonsillectomy - Immunizations Immunizations up to date: Yes Hx Diphtheria, Pertussis, Tetanus Vaccination: Yes Review of Systems - Review of Systems Constitutional: No symptoms reported EENT: No symptoms reported Cardiovascular: No symptoms reported Respiratory: No symptoms reported Gastrointestinal: No symptoms reported Genitourinary: No symptoms reported Female Genitourinary: See HPI, Musculoskeletal: No symptoms reported Skin: No symptoms reported Hematologic/Lymphatic: No symptoms reported Neurological/Psychological: No symptoms reported Physical Exam - Vital signs Vitals: Temp Pulse Resp BP Pulse Ox 97.5 F 94 18 120/80 100 03/25/18 11:10 03/25/18 11:10 03/25/18 11:10 03/25/18 11:10 03/25/18 11:10 Interpretation: Normal - General General appearance: Appears well, Alert In distress: None - HEENT Head: Normocephalic, Atraumatic Eyes: Normal Pupils: PERRL Neck: Normal - Respiratory Respiratory status: No respiratory distress Breath sounds: Normal - Cardiovascular Rhythm: Regular - Abdominal Inspection: Normal Tenderness: Nontender - Back Back: Normal - Extremities General upper extremity: Normal inspection General lower extremity: Normal inspection - Neurological Neuro grossly intact: Yes - Psychological Associated symptoms: Normal affect, Normal mood - Skin Skin Temperature: Warm Skin Moisture: Dry Skin Color: Normal Course - Re-evaluation Re-evalutation: 03/25/18 13:28 The patient's hCG level was 27,457 3 days ago, and is 40,595 today. That is not a doubling in 2 days. She does have a known intrauterine , but viability is still in question. Patient will be advised to follow-up with [facility] for [facility] later this week. - Vital Signs Vital signs: Temp Pulse Resp BP Pulse Ox 97.5 F 94 18 120/80 100 03/25/18 11:10 03/25/18 11:10 03/25/18 11:10 03/25/18 11:10 03/25/18 11:10 - Laboratory Laboratory results interpreted by me: 03/25/18 11:50 Beta HCG, Quant 01134.00 H Discharge - Discharge Clinical Impression: Intrauterine , Pelvic cramping Condition: Stable Disposition: HOME, SELF-CARE Additional Instructions: Your hCG hormone level did go up from 27,457 to 40,595. This would suggest that the was viable at the time your ultrasound was done 3 days ago. You should follow-up with [facility] later this week for a repeat ultrasound to look for the development of a pole and heartbeat. RETURN TO THE EMERGENCY ROOM IF ANY NEW OR WORSENING SYMPTOMS. Referrals: LOLY AGUILAR MD [Primary Care Provider] - Follow up as needed [facility] [Provider Group] - Follow up in 3-5 days
[2018-03-25 13:46] VITALS: BP 115/85
== END 2018-03-25 14:15 | disposition home or self-care (01) ==
LOC: ER 11:04
DX: O26.891 Other specified pregnancy related conditions, first trimester (principal); R10.2 Pelvic and perineal pain; O99.511 Diseases of the respiratory system complicating pregnancy, first trimester; J45.909 Unspecified asthma, uncomplicated; Z3A.01 Less than 8 weeks gestation of pregnancy
CPT/HCPCS: 36415; 84702; 99284

== ENCOUNTER 2018-04-21 20:45 | Emergency (ER) | payer MEDICAID ==
[2018-04-21 21:16] LABS: ABSOLUTE BASOPHILS # (AUTO) 0.1 10^3/uL (0.0-0.2); ABSOLUTE EOSINOPHILS # (AUTO) 0.4 10^3/uL (0.0-0.6); ABSOLUTE LYMPHOCYTES (AUTO) 3.7 10^3/uL (0.5-4.7); ABSOLUTE NEUT (AUTO) 3.9 10^3/uL (1.7-8.2); BASOPHILS % (AUTO) 0.6 % (0-2); EOSINOPHILS % (AUTO) 3.9 % (0-6); HEMATOCRIT 33.9 % (36.0-47.0); HEMOGLOBIN 11.1 g/dL (12.0-15.5); LYMPHOCYTES % (AUTO) 41.5 % (13-45); MEAN CORPUSCULAR HEMOGLOBIN 29.4 pg (27.0-33.4); MEAN CORPUSCULAR HGB CONC 32.7 g/dL (32.0-36.0); MEAN CORPUSCULAR VOLUME 90 fl (80-97); MONOCYTES % (AUTO) 10.9 % (3-13); PLATELET COUNT 229 10^3/uL (150-450); RED BLOOD COUNT 3.77 10^6/uL (3.72-5.28); RED CELL DISTRIBUTION WIDTH 16.9 % (11.5-14.0); SEGMENTED NEUTROPHILS % (AUTO) 43.1 % (42-78); TOTAL CELLS COUNTED % (AUTO) 100 %
[2018-04-21 21:30] LABS: ALANINE AMINOTRANSFERASE 14 U/L (9-52); ALBUMIN 4.2 g/dL (3.5-5.0); ALKALINE PHOSPHATASE 36 U/L (38-126); ANION GAP 9 (5-19); ASPARTATE AMINO TRANSFERASE 22 U/L (14-36); BILIRUBIN,DIRECT 0.2 mg/dL (0.0-0.4); BILIRUBIN,TOTAL 0.3 mg/dL (0.2-1.3); BLOOD UREA NITROGEN 12 mg/dL (7-20); CALCIUM 9.7 mg/dL (8.4-10.2); CARBON DIOXIDE 25 mmol/L (22-30); CHLORIDE 106 mmol/L (98-107); GLUCOSE 87 mg/dL (75-110); POTASSIUM 4.7 mmol/L (3.6-5.0); SODIUM 140.3 mmol/L (137-145); TOTAL PROTEIN 7.5 g/dL (6.3-8.2)
[2018-04-21] MEDS ORDERED: FENTANYL CITRATE INJ/PF 100 MCG/2 ML AMPUL IV ONE ×2 (21:53→23:33)
--- NOTE | 2018-04-21 23:17 | RADIOLOGY REPORT (SQ) ---
EXAM DESCRIPTION: US TRANSVAGINAL COMPLETED DATE/TME: 04/21/2018 21:53 CLINICAL HISTORY: 23 years Female, preg/vag bleeding COMPARISON:03/22/2018 TECHNIQUE: Transvaginal. LIMITATIONS: None. FINDINGS: Possible gestational sac with decidual reaction and yolk sac at the level of the cervix/ lower uterine cavity. Endometrial cavity appears 2.6 cm thick with likely blood/clot 3.8-cm right ovary with possible 2.3 cm corpus luteal cyst, obscured left ovary, 4.4-cm cervical length, and no free fluid. IMPRESSION: Cervical ectopic gestation pattern. Differential diagnosis includes early viable gestation with low uterine implantation, and ongoing gestational loss. Immediate Surgical referral advised.
--- NOTE | 2018-04-21 23:37 | ER Document Report ---
ED General - General Chief Complaint: Vag Bleeding, +preg <12wks Stated Complaint: VAGINAL BLEEDING Time Seen by Provider: 04/21/18 21:03 Notes: Patient is a 23-year-old female presents to the emergency department with vaginal bleeding. Patient states she thinks that she is 2 months at this time. Patient states she has gone through 6 tampons since the bleeding started last evening. Patient is complaining of generalized lower abdominal cramping at this time. Patient states she was seen at this facility for lower abdominal pain after finding out she was . Patient states she was told that the baby was fine and she needed to follow-up outpatient with [facility]. Patient states she followed up with [facility] and they told her that she could potentially be having a miscarriage. Patient states that they sent a prescription for methotrexate 2 weeks ago to the pharmacy which she has not picked up nor has she taken. Patient states she did not take the prescription because she said the emergency room told her the baby was fine and then [facility] told her the baby was not fine. States she was unsure who to believe so she did not take the prescription medications. Patient states she has not followed up with women[facility], primary care or this emergency room over the last 2 weeks when she was supposed to be taking methotrexate but presents the emergency now due to her vaginal bleeding and lower abdominal cramping. Past medical history: None Medications: None Allergies: None TRAVEL OUTSIDE OF THE [place] IN LAST 30 DAYS: No - Related Data Allergies/Adverse Reactions: No Known Allergies Allergy (Verified 02/15/18 18:45) Past Medical History - General Information source: Patient Last Menstrual Period: 01/20/18 - Social History Smoking Status: Former Smoker Chew tobacco use (# tins/day): No Frequency of alcohol use: None Drug Abuse: None Family History: Reviewed & Not Pertinent, Other - Adopted Patient has suicidal ideation: No Patient has homicidal ideation: No Pulmonary Medical History: Reports: Hx Asthma - inhalers if needed Renal/ Medical History: Denies: Hx Peritoneal Dialysis Past Surgical History: Reports: Hx Abdominal Surgery - hernia repair, Hx Adenoidectomy, Hx Section, Hx Tonsillectomy - Immunizations Immunizations up to date: Yes Hx Diphtheria, Pertussis, Tetanus Vaccination: Yes Review of Systems - Review of Systems Constitutional: No symptoms reported EENT: No symptoms reported Cardiovascular: No symptoms reported Respiratory: No symptoms reported Gastrointestinal: See HPI Genitourinary: See HPI Female Genitourinary: See HPI Musculoskeletal: See HPI Skin: No symptoms reported Hematologic/Lymphatic: No symptoms reported Neurological/Psychological: No symptoms reported Physical Exam - Vital signs Vitals: Temp Pulse Resp BP Pulse Ox 98.1 F 91 18 134/91 H 99 04/21/18 20:53 04/21/18 20:53 04/21/18 20:53 04/21/18 20:53 04/21/18 20:53 - Notes Notes: GENERAL: Alert, interacts well. Patient in minor distress holding lower abdomen, non-tachycardic, nondiaphoretic at this time. HEAD: Normocephalic, atraumatic. EYES: Pupils equal, round, and reactive to light. Extraocular movements intact. ENT: Oral mucosa moist, tongue midline. NECK: Full range of motion. Supple. Trachea midline. LUNGS: Clear to auscultation bilaterally, no wheezes, rales, or rhonchi. No respiratory distress. HEART: Regular rate and rhythm. No murmur ABDOMEN: Soft, Non-distended. Bowel sounds present in all 4 quadrants. Generalized tenderness right and left pelvic regions, also suprapubic. EXTREMITIES: Moves all 4 extremities spontaneously. No edema, normal radial and dorsalis pedis pulses bilaterally. No cyanosis. BACK: no cervical, thoracic, lumbar midline tenderness. No saddle anesthesia, normal distal neurovascular exam. No CVA tenderness bilaterally NEUROLOGICAL: Alert and oriented x3. Normal speech. cranial nerves II through XII grossly intact PSYCH: Normal affect, normal mood. SKIN: Warm, dry, normal turgor. No rashes or lesions noted. Course - Re-evaluation Re-evalutation: 04/21/18 23:[address] Hollis Zambrano, OBGYN who states these is no need for him to see the Pt. He stated the pt. is currently having a miscarriage at this time. Discussed following up at his office tomorrow morning. Pts HCG is down trending and US shows "possible gestational sac with decidual reaction and yolk sac at the level of the cervix/lower uterine cavity" Discussed with Pt that she is having a miscarriage at this time. Discussed the importance of following up with Dr. Hollis Zambrano [facility] tomorrow morning. Patient voices understanding. Patient continues to be hemodynamically stable with minor lower abdominal pain and cramping. Patient denies any nausea or vomiting. 04/22/18 02:27 Urine does show signs of infection, will treat for same. - Vital Signs Vital signs: Temp Pulse Resp BP Pulse Ox 98.1 F 91 13 133/80 H 100 04/21/18 20:53 04/21/18 20:53 04/22/18 00:08 04/21/18 22:01 04/22/18 00:08 - Laboratory Result Diagrams: 04/21/18 21:05 04/21/18 21:05 Laboratory results interpreted by me: 04/21/18 04/21/18 04/22/18 21:05 21:05 01:36 Hgb 11.1 L Hct 33.9 L RDW 16.9 H Creatinine 0.47 L Alkaline Phosphatase 36 L Beta HCG, Quant 43953.00 H Urine Protein 100 H Urine Blood LARGE H Urine Nitrite POSITIVE H Discharge - Discharge Clinical Impression: Miscarriage Urinary tract infection Qualifiers: Urinary tract infection type: acute cystitis Hematuria presence: with hematuria Qualified Code(s): N30.01 - Acute cystitis with hematuria Condition: Stable Disposition: HOME, SELF-CARE Instructions: Miscarriage ([facility]), Urinary Tract Infection ([facility]), Cephalexin ([facility]) Additional Instructions: As we discussed you have been seen and treated in the emergency department for a miscarriage. It is very important that you follow-up with [facility] Dr. Hollis Zambrano tomorrow morning. His phone number and office address are within this paperwork. Continue to take prescriptions as prescribed. Should you feel lightheaded, dizzy, weak or have increased vaginal bleeding that you are concerned with please return to the emergency room. At this time your labs show that you have not lost enough blood to warrant a blood transfusion. Your urine shows signs of infection, please take antibiotics as prescribed. Again please make sure you follow-up with [facility] Dr. Hollis Zambrano tomorrow morning at his office. Prescriptions: Cephalexin Monohydrate [Keflex 500 mg Capsule] 500 mg PO BID 7 Days #14 capsule Referrals: HOLLIS ZAMBRANO MD [ACTIVE STAFF] - Follow up as needed
[2018-04-21] MEDS ORDERED: HYDROCODONE/ACETAMINOPHEN 5-325 MG (6 TAB/ER DISP) PO PRN (23:47)
[2018-04-22 02:20] LABS: APPEARANCE,URINE CLOUDY; BILIRUBIN,URINE NEGATIVE (NEGATIVE); GLUCOSE, URINE NEGATIVE (NEGATIVE); KETONES,URINE NEGATIVE (NEGATIVE); LEUKOCYTE ESTERASE,URINE NEGATIVE (NEGATIVE); NITRITE,URINE POSITIVE (NEGATIVE); PROTEIN,URINE 100 mg/dL (NEGATIVE); URINE SPECIFIC GRAVITY 1.023; UROBILINOGEN,URINE NEGATIVE mg/dL (<2.0)
[2018-04-22 02:21] LABS: COLOR,URINE DARK YELLOW
[2018-04-22] MEDS ORDERED: CEPHALEXIN 500 MG CAPSULE PO ONE (02:24)
[2018-04-22 03:06] VITALS: BP 113/64
== END 2018-04-22 03:06 | disposition home or self-care (01) ==
LOC: ER 20:45
DX: O03.9 Complete or unspecified spontaneous abortion without complication (principal); N30.01 Acute cystitis with hematuria
CPT/HCPCS: 96376; 99284; 96374; 86900; 86901; 36415; 84702; 85025; 80053; 81001; 76817; 93976; J3010

== ENCOUNTER 2018-04-24 18:24 | Emergency (ER) | payer MEDICAID ==
--- NOTE | 2018-04-24 19:27 | ER Document Report ---
ED Medical Screen (RME) - General TRAVEL OUTSIDE OF THE U.S[place] IN LAST 30 DAYS: No <ORVILLE ACOSTA - Last Filed: 04/24/18 20:51> <NACHO DING - Last Filed: 04/24/18 21:45> - General Chief Complaint: Vaginal Bleeding Stated Complaint: ABDOMINAL PAIN Time Seen by Provider: 04/24/18 19:26 Notes: 23-year-old female who presents today with complaints of lower abdominal pain and continued vaginal bleeding. Patient was told on 04/21 that she was having a miscarriage and she thinks she is approximately 9 weeks . Patient states that she is A1. Patient was given [place] to go home with but she states that she has ran out of this and her pain is getting worse and the b leeding is getting heavier. Patient has some dysuria as well. I have greeted and performed a rapid initial assessment of this patient. A comprehensive ED assessment and evaluation of the patient, analysis of test results, and completion of the medical decision making process will be conducted by additional ED providers. Review of systems: Gastrointestinal: Abdominal pain. Genitourinary: Dysuria. Vaginal bleeding. Miscarrying. PHYSICAL EXAM GENERAL: Alert, interacts well. No acute distress. HEAD: Normocephalic, atraumatic. EYES: Pupils equal, round, and reactive to light. Extraocular movements intact. ENT: Oral mucosa moist, tongue midline. NECK: Full range of motion. Supple. Trachea midline. LUNGS: No respiratory distress. EXTREMITIES: Moves all 4 extremities spontaneously. NEUROLOGICAL: Alert and oriented x3. Normal speech. PSYCH: Normal affect, normal mood. SKIN: Warm, dry, normal turgor. No rashes or lesions noted. (ORVILLE ACOSTA) - Related Data Allergies/Adverse Reactions: No Known Allergies Allergy (Verified 04/24/18 18:28) Past Medical History - Social History Chew tobacco use (# tins/day): No Frequency of alcohol use: None Drug Abuse: None Pulmonary Medical History: Reports: Hx Asthma - inhalers if needed Renal/ Medical History: Denies: Hx Peritoneal Dialysis Past Surgical History: Reports: Hx Abdominal Surgery - hernia repair, Hx Adenoidectomy, Hx Section, Hx Tonsillectomy - Immunizations Immunizations up to date: Yes Hx Diphtheria, Pertussis, Tetanus Vaccination: Yes <ORVILLE ACOSTA - Last Filed: 04/24/18 20:51> - Vital signs Vitals: Temp Pulse Resp BP Pulse Ox 98.5 F 84 16 121/73 100 04/24/18 18:40 04/24/18 18:40 04/24/18 18:40 04/24/18 18:40 04/24/18 18:40 Course - Laboratory Result Diagrams: 04/24/18 18:00 04/24/18 18:00 <ORVILLE ACOSTA - Last Filed: 04/24/18 20:51> - Laboratory Result Diagrams: 04/24/18 18:00 04/24/18 18:00 <NACHO DING - Last Filed: 04/24/18 21:45> - Vital Signs Vital signs: Temp Pulse Resp BP Pulse Ox 98.5 F 84 16 121/73 100 04/24/18 18:40 04/24/18 18:40 04/24/18 18:40 04/24/18 18:40 04/24/18 18:40 - Laboratory Laboratory results interpreted by me: 04/24/18 04/24/18 18:00 18:00 RBC 3.55 L Hgb 10.6 L Hct 32.0 L RDW 17.5 H Beta HCG, Quant 1507.00 H Doctor's Discharge <ORVILLE ACOSTA - Last Filed: 04/24/18 20:51> <NACHO DING - Last Filed: 04/24/18 21:45> - Discharge Referrals: LOLY AGUILAR MD [Primary Care Provider] - Follow up as needed Scribe Documentation - Scribe Written by Scribe:: Brant Carmona, [id number] acting as scribe for :: [place] <ORVILLE ACOSTA - Last Filed: 04/24/18 20:51>
[2018-04-24] MEDS ORDERED: MORPHINE SULFATE 10 MG/ML INJ IV ONE (19:35)
[2018-04-24 19:45] LABS: ABSOLUTE BASOPHILS # (AUTO) 0.1 10^3/uL (0.0-0.2); ABSOLUTE EOSINOPHILS # (AUTO) 0.3 10^3/uL (0.0-0.6); ABSOLUTE LYMPHOCYTES (AUTO) 3.2 10^3/uL (0.5-4.7); ABSOLUTE MONOCYTES (AUTO) 0.7 10^3/uL (0.1-1.4); ABSOLUTE NEUT (AUTO) 4.6 10^3/uL (1.7-8.2); BASOPHILS % (AUTO) 0.8 % (0-2); EOSINOPHILS % (AUTO) 3.7 % (0-6); HEMOGLOBIN 10.6 g/dL (12.0-15.5); MEAN CORPUSCULAR HEMOGLOBIN 29.8 pg (27.0-33.4); MEAN CORPUSCULAR HGB CONC 33.1 g/dL (32.0-36.0); MEAN CORPUSCULAR VOLUME 90 fl (80-97); PLATELET COUNT 236 10^3/uL (150-450); RED BLOOD COUNT 3.55 10^6/uL (3.72-5.28); RED CELL DISTRIBUTION WIDTH 17.5 % (11.5-14.0); SEGMENTED NEUTROPHILS % (AUTO) 51.5 % (42-78); TOTAL CELLS COUNTED % (AUTO) 100 %; WHITE BLOOD COUNT 8.9 10^3/uL (4.0-10.5)
[2018-04-24 19:51] LABS: ALANINE AMINOTRANSFERASE 12 U/L (9-52); ALBUMIN 4.3 g/dL (3.5-5.0); ALKALINE PHOSPHATASE 41 U/L (38-126); ANION GAP 10 (5-19); ASPARTATE AMINO TRANSFERASE 20 U/L (14-36); BILIRUBIN,DIRECT 0.3 mg/dL (0.0-0.4); BILIRUBIN,TOTAL 0.3 mg/dL (0.2-1.3); BLOOD UREA NITROGEN 19 mg/dL (7-20); CALCIUM 9.6 mg/dL (8.4-10.2); CARBON DIOXIDE 25 mmol/L (22-30); CHLORIDE 106 mmol/L (98-107); GLUCOSE 98 mg/dL (75-110); POTASSIUM 4.2 mmol/L (3.6-5.0); TOTAL PROTEIN 7.7 g/dL (6.3-8.2)
--- NOTE | 2018-04-24 21:47 | ER Document Report ---
ED GI/ - General Chief Complaint: Vaginal Bleeding Stated Complaint: ABDOMINAL PAIN Time Seen by Provider: 04/24/18 19:26 Notes: Patient is a 23-year-old female, at 9 weeks gestation by previous ultrasound, that comes to the emergency department for chief complaint of painful pelvic cramping and vaginal bleeding. She states that she believes she is having a miscarriage based on an ultrasound a few days ago, she was given a few [place] medications but states this is not enough and she is having pain that is severe when the cramping comes. She denies vomiting, fever, she denies current pain/cramping. She is following with [facility]. Past medical history of umbilical hernia repair and tonsillectomy, denies any other medical history. TRAVEL OUTSIDE OF THE [place] IN LAST 30 DAYS: No - Related Data Allergies/Adverse Reactions: No Known Allergies Allergy (Verified 04/24/18 18:28) Past Medical History - General Information source: Patient - Social History Smoking Status: Never Smoker Chew tobacco use (# tins/day): No Frequency of alcohol use: None Drug Abuse: None Lives with: Family Family History: Reviewed & Not Pertinent, Other - Adopted Patient has suicidal ideation: No Patient has homicidal ideation: No Pulmonary Medical History: Reports: Hx Asthma - inhalers if needed Renal/ Medical History: Denies: Hx Peritoneal Dialysis Past Surgical History: Reports: Hx Abdominal Surgery - hernia repair, Hx Adenoidectomy, Hx Section, Hx Tonsillectomy - Immunizations Immunizations up to date: Yes Hx Diphtheria, Pertussis, Tetanus Vaccination: Yes Review of Systems - Review of Systems Constitutional: No symptoms reported EENT: No symptoms reported Cardiovascular: No symptoms reported Respiratory: No symptoms reported Gastrointestinal: No symptoms reported Genitourinary: No symptoms reported Female Genitourinary: See HPI Musculoskeletal: No symptoms reported Skin: No symptoms reported Hematologic/Lymphatic: No symptoms reported Neurological/Psychological: No symptoms reported Physical Exam - Vital signs Vitals: Temp Pulse Resp BP Pulse Ox 98.5 F 84 16 121/73 100 04/24/18 18:40 04/24/18 18:40 04/24/18 18:40 04/24/18 18:40 04/24/18 18:40 - Notes Notes: GENERAL: Alert, interacts well. No acute distress. HEAD: Normocephalic, atraumatic. EYES: Pupils equal, round, and reactive to light. Extraocular movements intact. ENT: Oral mucosa moist, tongue midline. Oropharynx unremarkable. Airway patent. Nares patent, no nasal septal hematoma, TM's intact. NECK: Full range of motion. Supple. Trachea midline. LUNGS: Clear to auscultation bilaterally, no wheezes, rales, or rhonchi. No respiratory distress. HEART: Regular rate and rhythm. No murmur ABDOMEN: Soft, non-tender. Non-distended. Bowel sounds present in all 4 quadrants. GENITOURINARY: Deferred EXTREMITIES: Moves all 4 extremities spontaneously. No edema, normal radial and dorsalis pedis pulses bilaterally. No cyanosis. BACK: no cervical, thoracic, lumbar midline tenderness. No saddle anesthesia, normal distal neurovascular exam. NEUROLOGICAL: Alert and oriented x3. Normal speech. [cranial nerves II through XII grossly intact]. PSYCH: Normal affect, normal mood. SKIN: Warm, dry, normal turgor. No rashes or lesions noted. Course - Re-evaluation Re-evalutation: Patient was here 3 days ago, RhoGam was not indicated with a positive blood type, uncertain ultrasound showing possible ectopic versus ongoing miscarriage. Based on her hCG is suspect this is an ongoing miscarriage, previously 10,000 and now 1500. CBC shows mildly worsening anemia from 11-10.6. Workup generally unremarkable otherwise. Ultrasound showing abnormal appearance of the lower uterine area near the cervical canal, could be blood products combined with impending miscarriage. I called and spoke with Dr. Crawley, PRISONER CLASSIFICATION INTERVIEWER. Discussed patient's previous visit, workup, current workup, and symptoms. Recommend that this appears to be a deve loping miscarriage, recommends that patient be seen tomorrow in the office for probable Cytotec, does not have additional recommendations at this time other than providing patient with Tylenol 3 at home. I did discuss this with patient in detail, patient does state understanding and agreement. Stable at time of discharge. - Vital Signs Vital signs: Temp Pulse Resp BP Pulse Ox 98.1 F 69 16 126/85 H 100 04/24/18 23:59 04/24/18 23:59 04/24/18 23:59 04/24/18 23:59 04/24/18 23:59 - Laboratory Result Diagrams: 04/24/18 18:00 04/24/18 18:00 Laboratory results interpreted by me: 04/24/18 04/24/18 18:00 18:00 RBC 3.55 L Hgb 10.6 L Hct 32.0 L RDW 17.5 H Beta HCG, Quant 1507.00 H Discharge - Discharge Clinical Impression: Vaginal bleeding, Incomplete miscarriage Condition: Stable Disposition: HOME, SELF-CARE Additional Instructions: Your ultrasound indicates an incomplete miscarriage. I spoke with Dr. Crawley, PRISONER CLASSIFICATION INTERVIEWER legal receptionist stella. Recommendation is to go to the office tomorrow at [facility] for them to treat this to help you pass the gestation. There is also a chance you may pass this at home over the next day. You have been provided with pain medication to take if needed. Return to the emergency department for any concerning symptoms including passing out, severe pain, or any other concerning or worsening symptoms. Miscarriage Impending You have been evaluated for a possible miscarriage. At this time, it appears that the fetus has stopped growing. A miscarriage occurs when the fetus is abnormal. There is no medicine or treatment to prevent it. If bleeding is not severe, and if your pain can be controlled with medicine, you could complete the miscarriage at home. If that's not practical, or if the miscarriage doesn't progress spontaneously, we will arrange for a D&C procedure. You should rest in bed. Do not douche or have sex for at least a week, or until OK'd by the doctor. If you believe you've passed the fetus, collect it in a zip-lock plastic bag. Be sure to follow up with your doctor. Call the doctor or return for re- examination if there is an increase in bleeding or cramping, extreme weakness, fainting, fever, or passage of tissue. Prescriptions: Acetaminophen with Codeine [Tylenol #3 Tablet] 1 each PO Q4HP PRN #15 tablet PRN Reason: Referrals: [facility] [Provider Group] - 04/25/18
[2018-04-24] MEDS ORDERED: OXYCODONE-ACETAMINOPHEN 5-325 MG TABLET PO ONE (23:38)
[2018-04-24] MEDS ORDERED: ONDANSETRON HCL INJ/PF 4 MG/2 ML SDV IV ONE (23:38)
--- NOTE | 2018-04-24 23:50 | RADIOLOGY REPORT (SQ) ---
EXAM DESCRIPTION: US TRANSVAGINAL COMPLETED DATE/TME: 04/24/2018 19:30 CLINICAL HISTORY: 23 years, Female, ongoing bleeding, miscarraige vs cervical ectopic COMPARISON: 04/21/2018 ultrasound TECHNIQUE: Transverse and longitudinal transvaginal sonographic images of the pelvis in a first trimester patient. LIMITATIONS: None. FINDINGS: The uterus measures 9.1 x 6.0 x 4.9 cm. There is no normal intrauterine gestational sac. There is a vague area of diminished echogenicity in the lower uterine segment/cervix measuring 2.45 cm. This could reflect a combination of blood products and/or abnormal gestational sac. This is in the region of the previously described anechoic structure in the lower uterine segment/cervix. The maternal ovaries are not well seen likely due to their position in the pelvis. No free fluid in the pelvis. No solid adnexal mass. Endometrial thickness is 9.6 mm. Maternal myometrium is homogenous. IMPRESSION: There is no normal intrauterine gestation. There is a vague area of diminished echogenicity having a somewhat complex appearance in the lower uterine segment/cervix. This could reflect an area of hemorrhage/blood products and/or abnormal gestational sac. This is in the region of the previously described anechoic structure. copyright 2010 [employer]- All Rights Reserved
[2018-04-25 00:01] VITALS: BP 126/85
== END 2018-04-25 00:33 | disposition home or self-care (01) ==
LOC: ER 18:24
DX: O03.4 Incomplete spontaneous abortion without complication (principal)
CPT/HCPCS: 99284; 96374; 96375; 36415; 84702; 85025; 80053; 76817; 93976; J2270; J2405

== ENCOUNTER 2018-06-18 15:12 | Emergency (ER) | payer MEDICAID ==
[2018-06-18 16:24] VITALS: BP 105/77
[2018-06-18] MEDS ORDERED: GUAIFENESIN 600 MG TABLET.SA PO ONE (16:25)
[2018-06-18] MEDS ORDERED: PSEUDOEPHEDRINE HCL 30 MG TABLET PO ONE (16:25)
[2018-06-18] MEDS ORDERED: ACETAMINOPHEN 325 MG TABLET PO ONE (16:25)
--- NOTE | 2018-06-18 16:29 | ER Document Report ---
ED ENT - General Chief Complaint: Sore Throat Stated Complaint: SORE THROAT Time Seen by Provider: 06/18/18 15:55 Primary Care Provider: LOLY AGUILAR MD [Primary Care Provider] - Follow up as needed Mode of Arrival: Ambulatory Information source: Patient Notes: 23-year-old female presented to ED for complaint of sore throat for several weeks. She states the she has a sore throat headache congestion. She denies any medications. Patient states she has intermittent feet swelling but has no swelling at this time. Patient is alert oriented respirations regular and unlabored speaking in full sentences. Patient states the feet have been swelling intermittently since March 2018. TRAVEL OUTSIDE OF THE [place] IN LAST 30 DAYS: No - HPI Patient complains to provider of: Ear problem, Nose problem, Throat problem, Other - Chronic pedal edema Onset: Other - 2 weeks Onset/Duration: Intermittent Quality of pain: Achy, Sharp Pain Level: 4 Context: Recent Illness Location of pain: Ears, Nose, Sinus, Throat Associated symptoms: Congestion, Cough, Ear pain, Runny nose, Sinus pain, Sinus drainage, Sore throat. denies: Stiff neck, Swollen glands Similar symptoms previously: Yes - Related Data Allergies/Adverse Reactions: No Known Allergies Allergy (Verified 06/18/18 15:14) Past Medical History - General Information source: Patient - Social History Smoking Status: Current Every Day Smoker Cigarette use (# per day): Yes - Less than half a pack a day Chew tobacco use (# tins/day): No Smoking Education Provided: Yes - 4 minutes Frequency of alcohol use: Occasional Drug Abuse: None Lives with: Family Family History: Reviewed & Not Pertinent, Other - Adopted Patient has suicidal ideation: No Patient has homicidal ideation: No - Past Medical History Cardiac Medical History: Reports: None Pulmonary Medical History: Reports: Hx Asthma - inhalers if needed EENT Medical History: Reports: None Neurological Medical History: Reports: None Endocrine Medical History: Reports: None Renal/ Medical History: Reports: None Malignancy Medical History: Reports: None GI Medical History: Reports: None Skin Medical History: Reports None Psychiatric Medical History: Reports: None Traumatic Medical History: Reports: None Infectious Medical History: Reports: None Past Surgical History: Reports: Hx Adenoidectomy, Hx Section, Hx Tonsillectomy, Hx Umbilical Hernia - Immunizations Immunizations up to date: Yes Hx Diphtheria, Pertussis, Tetanus Vaccination: Yes Review of Systems - Review of Systems Constitutional: Recent illness EENT: Nose congestion, Nose discharge, Sinus pressure, Sinus discharge, Throat pain Cardiovascular: No symptoms reported Respiratory: Cough Gastrointestinal: No symptoms reported Genitourinary: No symptoms reported Female Genitourinary: No symptoms reported Musculoskeletal: Ankle swelling - Intermittent but none today Skin: No symptoms reported Hematologic/Lymphatic: No symptoms reported Neurological/Psychological: No symptoms reported Physical Exam - Vital signs Vitals: Temp Pulse Resp BP Pulse Ox 98.3 F 96 16 115/69 100 06/18/18 15:22 06/18/18 15:22 06/18/18 15:22 06/18/18 15:22 06/18/18 15:22 Interpretation: Normal - General General appearance: Appears well, Alert - HEENT Head: Normocephalic, Atraumatic Eyes: Normal Pupils: PERRL Ears: Normal External canal: Normal Tympanic membrane: Normal Sinus: Normal Nasal: Purulent discharge, Swelling Mouth/Lips: Normal Mucous membranes: Normal Pharynx: Erythema, Post nasal drainage Neck: Normal - Respiratory Respiratory status: No respiratory distress Chest status: Nontender Breath sounds: Normal Chest palpation: Normal - Cardiovascular Rhythm: Regular Heart sounds: Normal auscultation Murmur: No - Abdominal Inspection: Normal Distension: No distension Bowel sounds: Normal Tenderness: Nontender Organomegaly: No organomegaly - Back Back: Normal, Nontender - Extremities General upper extremity: Normal inspection, Nontender, Normal color, Normal ROM, Normal temperature General lower extremity: Normal inspection, Nontender, Normal color, Normal ROM, Normal temperature, Normal weight bearing. No: Renetta's sign - Neurological Neuro grossly intact: Yes Cognition: Normal Orientation: AAOx4 Kt Coma Scale Eye Opening: Spontaneous Kt Coma Scale Verbal: Oriented Kt Coma Scale Motor: Obeys Commands [place] Coma Scale Total: 15 Speech: Normal Motor strength normal: LUE, RUE, LLE, RLE Sensory: Normal - Psychological Associated symptoms: Normal affect, Normal mood - Skin Skin Temperature: Warm Skin Moisture: Dry Skin Color: Normal Course - Vital Signs Vital signs: Temp Pulse Resp BP Pulse Ox 98.3 F 77 18 105/77 99 06/18/18 16:23 06/18/18 16:23 06/18/18 16:23 06/18/18 16:23 06/18/18 16:23 Discharge - Discharge Clinical Impression: URI (upper respiratory infection) Qualifiers: URI type: unspecified viral URI Qualified Code(s): J06.9 - Acute upper respiratory infection, unspecified Condition: Stable Disposition: HOME, SELF-CARE Additional Instructions: UPPER RESPIRATORY ILLNESS: You have a viral infection of the respiratory passages -- a "cold." This common infection causes nasal congestion, drainage, and often sore throat and cough. It is highly contagious. The disease usually lasts about 10 to 14 days. There is no "cure" for the viral infection -- it must run its course. If there is a complication, such as bacterial infection in the nose, sinuses, middle ear, or bronchial tubes, antibiotics may be required. The antibiotics won't affect the virus. Drink plenty of fluids. A humidifier may help. An expectorant medication or decongestant may make you more comfortable. Use acetaminophen or ibuprofen for fever or aches. See the doctor if fever persists over two days, if there is any significant worsening of your symptoms, or if you simply fail to improve as expected. DECONGESTANT MEDICATION: A decongestant medicine has been prescribed. Often this medicine is combined in the same tablet with an antihistamine or expectorant. This type of medicine is helpful in treating a bad cold or sinus condition, as well as in treatment of the nasal congestion of hay fever. It is not of much benefit for lung infections. Decongestant medicines are related to stimulants. They can cause an increase in blood pressure and heart rate. Persons with heart disease and high blood pressure should not take decongestants without discussing this with the physician. If you develop palpitations, chest pain, headache, or tremors, stop the medicine and consult your physician. COUGH-SUPPRESSANT & EXPECTORANT MEDICATION: You are to use a cough medication as needed for relief of symptoms. This medicine is a combination of an expectorant (to make the mucous thinner and more easily "coughed up") and a cough suppressant (to reduce the frequency of coughing). The cough-suppressant medicine is related to narcotics. You may experience mild nausea and sleepiness. Some patients who are very sensitive to narcotics may have stomach pain from this medicine. Taking the medicine with food reduces these side effects. Do not drive or work with machinery until you know how this medicine affects you. The expectorant should have no side effects. Iodine-containing expectorants (such as organidin) should not be taken by persons with active thyroid disease unless approved by your doctor. Call the doctor if you develop shortness of breath, hives, rash, itching, lightheadedness, or severe nausea and vomiting. USE OF ACETAMINOPHEN (Tylenol): Acetaminophen may be taken for pain relief or fever control. It's much safer than aspirin, offering a wider range of "safe" dosages. It is safe during . Some brand names are Tylenol, Panadol, Datril, Anacin 3, Tempra, and Liquiprin. Acetaminophen can be repeated every four hours. The following are maximum recommended dosages: >89 pounds or adults 650 mg to 900 mg Acetaminophen can be repeated every four hours. Maximum dose not to exceed 4000 mg a day. SMOKING: If you smoke, you should stop smoking. The tar and chemicals in cigarette smoke are harmful. Smoking has been shown to cause: emphysema chronic bronchitis lung cancer mouth and throat cancer stomach and pancreas cancer premature aging defects In addition, smoking increases ear and lung infections in children of smokers. Chloraseptic spray for use sore throat, salt and soda solution gargles to reduce the postnasal drip from the back your throat causing your sore throat, [id number] cold medicine, and follow-up with your primary care doctor. Consult with your primary care doctor concerning your intermittent edema to your feet and hands. You do not have any swelling to your hands or feet at this time. FOLLOW-UP CARE: If you have been referred to a physician for follow-up care, call the physicians office for an appointment as you were instructed or within the next two days. If you experience worsening or a significant change in your symptoms, notify the physician immediately or return to the Emergency Department at any time for re-evaluation. Forms: Smoking Cessation Education, Return to Work Referrals: LOLY AGUILAR MD [Primary Care Provider] - Follow up as needed
== END 2018-06-18 16:35 | disposition home or self-care (01) ==
LOC: ER 15:12
DX: J06.9 Acute upper respiratory infection, unspecified (principal); R68.89 Other general symptoms and signs; F17.210 Nicotine dependence, cigarettes, uncomplicated
CPT/HCPCS: 99406; 99283; 87070; 87880; J3490 ×2

== ENCOUNTER 2018-07-10 17:10 | Emergency (ER) | payer MEDICAID ==
--- NOTE | 2018-07-10 18:14 | ER Document Report ---
ED Medical Screen (RME) - General Chief Complaint: Abdominal Pain Stated Complaint: DIZZY, CONSTIPATED Time Seen by Provider: 07/10/18 18:13 Primary Care Provider: LOLY AGUILAR MD [Primary Care Provider] - Follow up as needed TRAVEL OUTSIDE OF THE [place] IN LAST 30 DAYS: No - HPI Notes: 07/10/18 18:13 Patient is complaining of dizziness and constipation. She says she has not had a bowel movement in a week. She is also unsure if she is and she wants a test. Physical exam is unremarkable. - Related Data Allergies/Adverse Reactions: No Known Allergies Allergy (Verified 06/18/18 15:14) Past Medical History - Social History Frequency of alcohol use: None Drug Abuse: None Pulmonary Medical History: Reports: Hx Asthma - inhalers if needed Renal/ Medical History: Denies: Hx Peritoneal Dialysis Past Surgical History: Reports: Hx Abdominal Surgery - hernia repair, Hx Adenoidectomy, Hx Section, Hx Tonsillectomy, Hx Umbilical Hernia - Immunizations Immunizations up to date: Yes Hx Diphtheria, Pertussis, Tetanus Vaccination: Yes Physical Exam - Vital signs Vitals: Temp Pulse Resp BP Pulse Ox 98.5 F 95 14 123/69 100 07/10/18 17:52 07/10/18 17:52 07/10/18 17:52 07/10/18 17:52 07/10/18 17:52 Course - Vital Signs Vital signs: Temp Pulse Resp BP Pulse Ox 98.5 F 95 14 123/69 100 07/10/18 17:52 07/10/18 17:52 07/10/18 17:52 07/10/18 17:52 07/10/18 17:52 Doctor's Discharge - Discharge Referrals: LOLY AGUILAR MD [Primary Care Provider] - Follow up as needed
[2018-07-10 18:41] LABS: APPEARANCE,URINE SLIGHTLY-CLOUDY; BILIRUBIN,URINE NEGATIVE (NEGATIVE); COLOR,URINE YELLOW; GLUCOSE, URINE NEGATIVE (NEGATIVE); KETONES,URINE NEGATIVE (NEGATIVE); LEUKOCYTE ESTERASE,URINE TRACE (NEGATIVE); NITRITE,URINE NEGATIVE (NEGATIVE); PROTEIN,URINE NEGATIVE (NEGATIVE); URINE SPECIFIC GRAVITY 1.014; UROBILINOGEN,URINE NEGATIVE mg/dL (<2.0)
[2018-07-10 19:05] LABS: ABSOLUTE EOSINOPHILS # (AUTO) 0.2 10^3/uL (0.0-0.6); ABSOLUTE LYMPHOCYTES (AUTO) 2.6 10^3/uL (0.5-4.7); ABSOLUTE MONOCYTES (AUTO) 0.7 10^3/uL (0.1-1.4); ABSOLUTE NEUT (AUTO) 4.5 10^3/uL (1.7-8.2); BASOPHILS % (AUTO) 0.4 % (0-2); EOSINOPHILS % (AUTO) 2.1 % (0-6); HEMATOCRIT 32.5 % (36.0-47.0); HEMOGLOBIN 10.7 g/dL (12.0-15.5); LYMPHOCYTES % (AUTO) 33.1 % (13-45); MEAN CORPUSCULAR HEMOGLOBIN 28.4 pg (27.0-33.4); MEAN CORPUSCULAR VOLUME 86 fl (80-97); MONOCYTES % (AUTO) 8.6 % (3-13); PLATELET COUNT 272 10^3/uL (150-450); RED BLOOD COUNT 3.77 10^6/uL (3.72-5.28); RED CELL DISTRIBUTION WIDTH 16.9 % (11.5-14.0); SEGMENTED NEUTROPHILS % (AUTO) 55.8 % (42-78); TOTAL CELLS COUNTED % (AUTO) 100 %
[2018-07-10 19:16] LABS: INTERNATIONAL RATION (INR) 1.04; PROTHROMBIN TIME 14.1 SEC (11.4-15.4)
[2018-07-10 19:17] LABS: PARTIAL THROMBOPLASTIN TIME 38.5 SEC (23.5-35.8)
[2018-07-10 19:25] LABS: ALANINE AMINOTRANSFERASE 18 U/L (9-52); ALBUMIN 4.4 g/dL (3.5-5.0); ALKALINE PHOSPHATASE 51 U/L (38-126); ANION GAP 11 (5-19); ASPARTATE AMINO TRANSFERASE 26 U/L (14-36); BILIRUBIN,DIRECT 0.2 mg/dL (0.0-0.4); BILIRUBIN,TOTAL 0.3 mg/dL (0.2-1.3); BLOOD UREA NITROGEN 14 mg/dL (7-20); CALCIUM 10.2 mg/dL (8.4-10.2); CARBON DIOXIDE 25 mmol/L (22-30); CHLORIDE 103 mmol/L (98-107); GLUCOSE 73 mg/dL (75-110); POTASSIUM 3.8 mmol/L (3.6-5.0); SODIUM 138.7 mmol/L (137-145); TOTAL PROTEIN 7.5 g/dL (6.3-8.2)
--- NOTE | 2018-07-10 21:51 | ER Document Report ---
ED General - General Chief Complaint: Abdominal Pain Stated Complaint: DIZZY, CONSTIPATED Time Seen by Provider: 07/10/18 18:13 Primary Care Provider: JOSE JACOBS MD [ACTIVE STAFF] - 07/17/18 Notes: Patient is a 23-year-old female who presents the emergency department with a chief complaint of dizziness and has not had a bowel movement in a week. She also states that she is unsure if she is and she does have some cramping. Denies any vaginal bleeding. Her last menstrual cycle was May 21. She is unsure as to whether or not she is . She admits to having unprotected sex. TRAVEL OUTSIDE OF THE [place] IN LAST 30 DAYS: No - Related Data Allergies/Adverse Reactions: No Known Allergies Allergy (Verified 06/18/18 15:14) Past Medical History - Social History Smoking Status: Former Smoker Frequency of alcohol use: None Drug Abuse: None Family History: Reviewed & Not Pertinent, Other - Adopted Patient has suicidal ideation: No Patient has homicidal ideation: No Pulmonary Medical History: Reports: Hx Asthma - inhalers if needed Renal/ Medical History: Denies: Hx Peritoneal Dialysis Past Surgical History: Reports: Hx Abdominal Surgery - hernia repair, Hx Adenoidectomy, Hx Section, Hx Tonsillectomy, Hx Umbilical Hernia - Immunizations Immunizations up to date: Yes Hx Diphtheria, Pertussis, Tetanus Vaccination: Yes Review of Systems - Review of Systems Notes: REVIEW OF SYSTEMS: CONSTITUTIONAL : Denies recent illness. Denies recent unintentional weight loss. Denies fever, chills, or sweats. EENT: Denies eye, ear, throat, or mouth pain, discharge, or symptoms. Denies nasal or sinus congestion. CARDIOVASCULAR: Denies chest pain. RESPIRATORY: Denies shortness of breath, cough, congestion, difficulty breathing, or wheezing. GASTROINTESTINAL: See HPI GENITOURINARY: Denies difficulty urinating, burning, blood in urine, urgency or frequency. MUSCULOSKELETAL: Denies neck and back pain. Denies joint pain or swelling. SKIN: Denies rash, itchiness, or lesions HEMATOLOGIC : Denies easy bruising or bleeding. LYMPHATIC: Denies swollen, painful, enlarged glands. NEUROLOGICAL: See HPI PSYCHIATRIC: Denies stress, anxiety, alteration in sleep patterns, or depression. All other systems reviewed and negative. Physical Exam - Vital signs Vitals: Temp Pulse Resp BP Pulse Ox 98.5 F 95 14 123/69 100 07/10/18 17:52 07/10/18 17:52 07/10/18 17:52 07/10/18 17:52 07/10/18 17:52 - Notes Notes: PHYSICAL EXAMINATION: GENERAL: Appears well, healthy, well-nourished, no acute distress. HEAD: Normocephalic, atraumatic. EYES: PERRL, conjunctiva normal, all extraocular movements intact, sclera nonicteric ENT: Moist mucous membranes. NECK: Supple, no noticeable swelling, redness, rash. Normal range of motion. LUNGS: Equal breath sounds bilaterally and clear to auscultation. No wheezes rales or rhonchi. CARDIOVASCULAR: S1-S2, regular rate, regular rhythm. Radial pulses 2+, normal. ABDOMEN: Normoactive bowel sounds. Soft, nontender, no guarding, no rebound tenderness, and no masses palpated. EXTREMITIES: Normal strength and range of motion, no pitting or edema. No cyanosis. NEUROLOGICAL: Moves all extremities upon command. Strength 5/5 in all extremities. PSYCH: Normal mood, normal affect. SKIN: Warm, dry. No rash, lesions, ulcerations noted. Normal skin turgor. Course - Re-evaluation Re-evalutation: 07/10/18 21:51 Patient's labs are grossly unremarkable. She is . She will follow-up with FORENSIC MANAGER in regards to her . She will be started on MiraLAX to help with her constipation. Encourage hydration. Her glucose is 73. She will be given juice to help bring her blood sugar up. Verbal discharge instructions were given to the patient. They verbalized understanding. They are stable for discharge. - Vital Signs Vital signs: Temp Pulse Resp BP Pulse Ox 98.5 F 95 14 123/69 100 07/10/18 17:52 07/10/18 17:52 07/10/18 17:52 07/10/18 17:52 07/10/18 17:52 - Laboratory Result Diagrams: 07/10/18 18:57 07/10/18 18:57 Laboratory results interpreted by me: 07/10/18 07/10/18 07/10/18 18:14 18:57 18:57 Hgb 10.7 L Hct 32.5 L RDW 16.9 H APTT 38.5 H Glucose Ur Leukocyte Esterase TRACE H Urine HCG, Qual POSITIVE H 07/10/18 18:57 Hgb Hct RDW APTT Glucose 73 L Ur Leukocyte Esterase Urine HCG, Qual Discharge - Discharge Clinical Impression: Dizziness Qualifiers: Weeks of gestation: less than 8 weeks Qualified Code(s): Z3A.01 - Less than 8 weeks gestation of Constipation Qualifiers: Constipation type: unspecified constipation type Qualified Code(s): K59.00 - Constipation, unspecified Condition: Stable Additional Instructions: You were seen today in the emergency department for constipation and dizziness. Your blood sugar here in the emergency department was 73. Make sure you eat well and stay well-hydrated, as you are also . Please follow-up with an FORENSIC MANAGER this week in regards to your . You can take MiraLAX, 1 capful every day and increase or decrease the amount of MiraLAX you take based on her b owel movements. You may also take lbon-nrl-appneul glycerin suppositories to help with constipation. If you have worsening symptoms, or have any symptoms that are worrisome to you, please return to the emergency department. Prescriptions: Polyethylene Glycol 3350 [Miralax] 1 cap PO DAILY #527 powder Referrals: JOSE JACOBS MD [ACTIVE STAFF] - 07/17/18
[2018-07-10 22:04] VITALS: BP 114/60
== END 2018-07-10 22:03 | disposition home or self-care (01) ==
LOC: ER 17:10
DX: O99.611 Diseases of the digestive system complicating pregnancy, first trimester (principal); K59.00 Constipation, unspecified; O26.891 Other specified pregnancy related conditions, first trimester; R42 Dizziness and giddiness; O99.511 Diseases of the respiratory system complicating pregnancy, first trimester; J45.909 Unspecified asthma, uncomplicated; Z3A.01 Less than 8 weeks gestation of pregnancy; Z87.891 Personal history of nicotine dependence
CPT/HCPCS: 36415; 80053; 81001; 81025; 85025; 85610; 85730; 99283

== ENCOUNTER 2018-09-18 19:06 | Outpatient (CLI) | payer MEDICAID ==
[2018-09-18 19:49] VITALS: BP 133/64
[2018-09-18 21:47] LABS: BACTERIA (WET MOUNT) 3+ BACTERIA SEEN; RBCS (WET MOUNT) RARE RBCS SEEN; T.VAGINALIS (WET MOUNT) NO TRICHOMONAS SEEN; WBCS (WET MOUNT) 3+ WBCS SEEN; YEAST (WET MOUNT) NO YEAST SEEN
[2018-09-18 22:05] LABS: APPEARANCE,URINE CLOUDY; BILIRUBIN,URINE NEGATIVE (NEGATIVE); COLOR,URINE YELLOW; GLUCOSE, URINE NEGATIVE (NEGATIVE); KETONES,URINE NEGATIVE (NEGATIVE); LEUKOCYTE ESTERASE,URINE MODERATE (NEGATIVE); NITRITE,URINE POSITIVE (NEGATIVE); PROTEIN,URINE 100 mg/dL (NEGATIVE); URINE SPECIFIC GRAVITY 1.012
[2018-09-18 22:32] LABS: URINE AMPHETAMINES SCREEN NEGATIVE; URINE BARBITURATES SCREEN NEGATIVE; URINE BENZODIAZEPINES SCREEN NEGATIVE; URINE COCAINE SCREEN NEGATIVE; URINE MARIJUANA (THC) SCREEN UNCONFIRMED POSITIVE; URINE METHADONE SCREEN NEGATIVE; URINE PHENCYCLIDINE SCREEN NEGATIVE
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
[2018-09-18 23:21] LABS: CHLAM PCR NOT DETECTED (NOT DETECT); GON PCR NOT DETECTED (NOT DETECT)
[2018-09-18] MEDS ORDERED: CEFAZOLIN INJ 1 GM VIAL ONE (23:28)
[2018-09-18] MEDS ORDERED: CEFAZOLIN 2 GM/D5W RTU 2 GM/50 ML RTUPB IV ONE (23:45)
== END 2018-09-19 00:01 | disposition home or self-care (01) ==
LOC: EDSTATUS 20:08 → LC 20:10
PROVIDERS: ATTEND Obstetrics & Gynecology
PROC: 4A1HXCZ Monitoring of Products of Conception, Cardiac Rate, External Approach (ICD-10-PCS; principal; 2018-09-18)
DX: O23.42 Unspecified infection of urinary tract in pregnancy, second trimester (principal); Z3A.17 17 weeks gestation of pregnancy
CPT/HCPCS: 59899; 87210; 81001; 80307; 87491; 87591; 76815; G0480 ×2; J0690; 80349

== ENCOUNTER 2018-10-13 22:14 | Outpatient (CLI) | payer MEDICAID ==
[2018-10-13 22:59] LABS: APPEARANCE,URINE CLEAR; BILIRUBIN,URINE NEGATIVE (NEGATIVE); COLOR,URINE STRAW; GLUCOSE, URINE NEGATIVE (NEGATIVE); KETONES,URINE NEGATIVE (NEGATIVE); LEUKOCYTE ESTERASE,URINE TRACE (NEGATIVE); NITRITE,URINE NEGATIVE (NEGATIVE); PROTEIN,URINE NEGATIVE (NEGATIVE); URINE SPECIFIC GRAVITY 1.008; UROBILINOGEN,URINE NEGATIVE mg/dL (<2.0)
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
[2018-10-13 23:15] LABS: URINE AMPHETAMINES SCREEN NEGATIVE; URINE BARBITURATES SCREEN NEGATIVE; URINE BENZODIAZEPINES SCREEN NEGATIVE; URINE COCAINE SCREEN NEGATIVE; URINE MARIJUANA (THC) SCREEN NEGATIVE; URINE METHADONE SCREEN NEGATIVE; URINE PHENCYCLIDINE SCREEN NEGATIVE
[2018-10-13 23:19] LABS: INTERNATIONAL RATION (INR) 1.01; PROTHROMBIN TIME 13.8 SEC (11.4-15.4)
[2018-10-13 23:20] LABS: PARTIAL THROMBOPLASTIN TIME 29.7 SEC (23.5-35.8)
[2018-10-13 23:41] LABS: BACTERIA (WET MOUNT) 3+ BACTERIA SEEN; EPITHELIALS (WET MOUNT) 3+ EPITHELIALS SEEN; RBCS (WET MOUNT) FEW RBCS SEEN; T.VAGINALIS (WET MOUNT) NO TRICHOMONAS SEEN; WBCS (WET MOUNT) 1+ WBCS SEEN; YEAST (WET MOUNT) NO YEAST SEEN
[2018-10-13 23:53] LABS: RUBELLA IGG ANTIBODY 8.64 IU/mL
[2018-10-13 23:56] LABS: RUBELLA INTERPRETATION NEGATIVE
[2018-10-14 01:08] LABS: CHLAM PCR NOT DETECTED (NOT DETECT); GON PCR NOT DETECTED (NOT DETECT)
[2018-10-14 01:53] LABS: FETAL RBC COUNT 0
[2018-10-14 01:54] LABS: KB INTERPRETATION NEGATIVE (NEGATIVE)
[2018-10-15 07:40] LABS: HEPATITIS C VIRUS AB <0.1 s/co ratio (0.0-0.9)
[2018-10-15 11:10] LABS: HEPATITS B SURFACE ANTIGEN Negative (Negative)
== END 2018-10-14 02:30 | disposition home or self-care (01) ==
LOC: LC 22:14
PROVIDERS: ATTEND Student in an Organized Health Care Education/Training Program
PROC: 4A1HXCZ Monitoring of Products of Conception, Cardiac Rate, External Approach (ICD-10-PCS; principal; 2018-10-13)
DX: O9A.212 Injury, poisoning and certain other consequences of external causes complicating pregnancy, second trimester (principal); O26.892 Other specified pregnancy related conditions, second trimester; Z3A.21 21 weeks gestation of pregnancy
CPT/HCPCS: 36415; 76815; 80307; 81001; 85460; 85610; 85730; 86592; 86701; 86762; 86787; 86803; 86804; 86850; 86900; 86901; 87210; 87340; 87491; 87591

== ENCOUNTER 2018-10-16 20:35 | Outpatient (CLI) | payer MEDICAID ==
[2018-10-16 22:18] LABS: APPEARANCE,URINE CLOUDY; BILIRUBIN,URINE NEGATIVE (NEGATIVE); COLOR,URINE YELLOW; GLUCOSE, URINE NEGATIVE (NEGATIVE); KETONES,URINE NEGATIVE (NEGATIVE); LEUKOCYTE ESTERASE,URINE MODERATE (NEGATIVE); NITRITE,URINE NEGATIVE (NEGATIVE); PROTEIN,URINE NEGATIVE (NEGATIVE); URINE SPECIFIC GRAVITY 1.009; UROBILINOGEN,URINE NEGATIVE mg/dL (<2.0)
[2018-10-16 22:35] LABS: URINE AMPHETAMINES SCREEN NEGATIVE; URINE BARBITURATES SCREEN NEGATIVE; URINE BENZODIAZEPINES SCREEN NEGATIVE; URINE COCAINE SCREEN NEGATIVE; URINE MARIJUANA (THC) SCREEN NEGATIVE; URINE METHADONE SCREEN NEGATIVE; URINE PHENCYCLIDINE SCREEN NEGATIVE
[2018-10-16 22:36] LABS: BACTERIA (WET MOUNT) 3+ BACTERIA SEEN; EPITHELIALS (WET MOUNT) 3+ EPITHELIALS SEEN; RBCS (WET MOUNT) NO RBCS SEEN; T.VAGINALIS (WET MOUNT) NO TRICHOMONAS SEEN; WBCS (WET MOUNT) 1+ WBCS SEEN; YEAST (WET MOUNT) NO YEAST SEEN
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
== END 2018-10-16 23:03 | disposition home or self-care (01) ==
LOC: LC 20:35
PROVIDERS: ATTEND Student in an Organized Health Care Education/Training Program
PROC: 4A1HXCZ Monitoring of Products of Conception, Cardiac Rate, External Approach (ICD-10-PCS; principal; 2018-10-16)
DX: O47.02 False labor before 37 completed weeks of gestation, second trimester (principal); Z3A.21 21 weeks gestation of pregnancy
CPT/HCPCS: 76815; 80307; 81001; 87210

== ENCOUNTER 2018-11-02 20:10 | Outpatient (CLI) | payer MEDICAID ==
[2018-11-02 20:56] LABS: APPEARANCE,URINE CLEAR; BILIRUBIN,URINE NEGATIVE (NEGATIVE); COLOR,URINE YELLOW; GLUCOSE, URINE NEGATIVE (NEGATIVE); KETONES,URINE NEGATIVE (NEGATIVE); PROTEIN,URINE NEGATIVE (NEGATIVE); UROBILINOGEN,URINE NEGATIVE mg/dL (<2.0)
[2018-11-02 20:57] LABS: LEUKOCYTE ESTERASE,URINE NEGATIVE (NEGATIVE); NITRITE,URINE NEGATIVE (NEGATIVE)
[2018-11-02] MEDS ORDERED: ONDANSETRON HCL INJ/PF 4 MG/2 ML SDV IV ONE (21:04)
[2018-11-02] MEDS ORDERED: RINGERS SOLUTION,LACTATED 1,000 ML IV PRN (21:04)
[2018-11-02] MEDS ORDERED: RINGERS SOLUTION,LACTATED 1,000 ML IV ONE (21:04)
[2018-11-02 21:11] LABS: URINE AMPHETAMINES SCREEN NEGATIVE; URINE BARBITURATES SCREEN NEGATIVE; URINE BENZODIAZEPINES SCREEN NEGATIVE; URINE COCAINE SCREEN NEGATIVE; URINE MARIJUANA (THC) SCREEN NEGATIVE; URINE METHADONE SCREEN NEGATIVE; URINE PHENCYCLIDINE SCREEN NEGATIVE
[2018-11-02 21:35] LABS: ABSOLUTE BASOPHILS # (AUTO) 0.1 10^3/uL (0.0-0.2); ABSOLUTE EOSINOPHILS # (AUTO) 0.4 10^3/uL (0.0-0.6); ABSOLUTE LYMPHOCYTES (AUTO) 2.2 10^3/uL (0.5-4.7); ABSOLUTE NEUT (AUTO) 4.5 10^3/uL (1.7-8.2); BASOPHILS % (AUTO) 0.9 % (0-2); EOSINOPHILS % (AUTO) 5.4 % (0-6); HEMATOCRIT 29.2 % (36.0-47.0); HEMOGLOBIN 9.6 g/dL (12.0-15.5); LYMPHOCYTES % (AUTO) 26.9 % (13-45); MEAN CORPUSCULAR VOLUME 91 fl (80-97); MONOCYTES % (AUTO) 11.8 % (3-13); PLATELET COUNT 188 10^3/uL (150-450); RED BLOOD COUNT 3.22 10^6/uL (3.72-5.28); TOTAL CELLS COUNTED % (AUTO) 100 %; WHITE BLOOD COUNT 8.1 10^3/uL (4.0-10.5)
[2018-11-02 21:52] LABS: ALANINE AMINOTRANSFERASE 11 U/L (9-52); ALBUMIN 3.4 g/dL (3.5-5.0); ALKALINE PHOSPHATASE 54 U/L (38-126); AMYLASE 67 U/L (30-110); ANION GAP 8 (5-19); ASPARTATE AMINO TRANSFERASE 18 U/L (14-36); BILIRUBIN,DIRECT 0.1 mg/dL (0.0-0.4); BILIRUBIN,TOTAL 0.2 mg/dL (0.2-1.3); BLOOD UREA NITROGEN 13 mg/dL (7-20); CALCIUM 8.7 mg/dL (8.4-10.2); CARBON DIOXIDE 23 mmol/L (22-30); CHLORIDE 105 mmol/L (98-107); LIPASE 53.9 U/L (23-300); POTASSIUM 3.6 mmol/L (3.6-5.0); TOTAL PROTEIN 6.6 g/dL (6.3-8.2)
[2018-11-02 21:55] LABS: GLUCOSE 52 mg/dL (75-110)
[2018-11-02] MEDS ORDERED: ONDANSETRON HCL INJ/PF 4 MG/2 ML SDV ONE (21:56)
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
[2018-11-02 23:29] LABS: BACTERIA (WET MOUNT) 4+ BACTERIA SEEN; RBCS (WET MOUNT) NO RBCS SEEN; T.VAGINALIS (WET MOUNT) NO TRICHOMONAS SEEN; WBCS (WET MOUNT) 1+ WBCS SEEN; YEAST (WET MOUNT) NO YEAST SEEN
[2018-11-03 00:50] LABS: CHLAM PCR NOT DETECTED (NOT DETECT)
== END 2018-11-03 02:02 | disposition home or self-care (01) ==
LOC: LC 20:10
PROVIDERS: ATTEND Student in an Organized Health Care Education/Training Program
PROC: 4A1HXCZ Monitoring of Products of Conception, Cardiac Rate, External Approach (ICD-10-PCS; principal; 2018-11-02)
DX: O47.02 False labor before 37 completed weeks of gestation, second trimester (principal); Z3A.24 24 weeks gestation of pregnancy
CPT/HCPCS: 36415; 87210; 82150; 83690; 85025; 80053; 81001; 80307; 87491; 87591; 76815; 59899; J2405

== ENCOUNTER 2018-12-30 03:43 | Outpatient (CLI) | payer MEDICAID ==
[2018-12-30 05:36] LABS: T.VAGINALIS (WET MOUNT) NO TRICHOMONAS SEEN; WBCS (WET MOUNT) 3+ WBCS SEEN; YEAST (WET MOUNT) NO YEAST SEEN
[2018-12-30 05:37] LABS: BACTERIA (WET MOUNT) 3+ BACTERIA SEEN; EPITHELIALS (WET MOUNT) 4+ EPITHELIALS SEEN; RBCS (WET MOUNT) FEW RBCS SEEN
[2018-12-30 05:44] LABS: APPEARANCE,URINE CLEAR; BILIRUBIN,URINE NEGATIVE (NEGATIVE); COLOR,URINE STRAW; GLUCOSE, URINE NEGATIVE (NEGATIVE); KETONES,URINE NEGATIVE (NEGATIVE); LEUKOCYTE ESTERASE,URINE NEGATIVE (NEGATIVE); NITRITE,URINE NEGATIVE (NEGATIVE); PROTEIN,URINE NEGATIVE (NEGATIVE); URINE SPECIFIC GRAVITY 1.006; UROBILINOGEN,URINE NEGATIVE mg/dL (<2.0)
[2018-12-30 05:58] LABS: URINE AMPHETAMINES SCREEN NEGATIVE; URINE BARBITURATES SCREEN NEGATIVE; URINE BENZODIAZEPINES SCREEN NEGATIVE; URINE COCAINE SCREEN NEGATIVE; URINE MARIJUANA (THC) SCREEN NEGATIVE; URINE METHADONE SCREEN NEGATIVE; URINE PHENCYCLIDINE SCREEN NEGATIVE
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
[2018-12-30 07:12] LABS: CHLAM PCR NOT DETECTED (NOT DETECT)
== END 2018-12-30 07:30 | disposition home or self-care (01) ==
LOC: LC 03:43
PROVIDERS: ATTEND Student in an Organized Health Care Education/Training Program
PROC: 4A1HXCZ Monitoring of Products of Conception, Cardiac Rate, External Approach (ICD-10-PCS; principal; 2018-12-30)
DX: O47.03 False labor before 37 completed weeks of gestation, third trimester (principal); Z3A.32 32 weeks gestation of pregnancy
CPT/HCPCS: 59025; 76815; 80307; 81001; 87210; 87491; 87591

== ENCOUNTER 2019-02-14 05:03 | Inpatient (IN) | payer MEDICAID ==
[2019-02-12 10:30] LABS: ABSOLUTE BASOPHILS # (AUTO) 0.1 10^3/uL (0.0-0.2); ABSOLUTE EOSINOPHILS # (AUTO) 0.2 10^3/uL (0.0-0.6); ABSOLUTE LYMPHOCYTES (AUTO) 2.5 10^3/uL (0.5-4.7); ABSOLUTE MONOCYTES (AUTO) 0.9 10^3/uL (0.1-1.4); BASOPHILS % (AUTO) 0.8 % (0-2); EOSINOPHILS % (AUTO) 2.2 % (0-6); HEMATOCRIT 28.3 % (36.0-47.0); HEMOGLOBIN 9.4 g/dL (12.0-15.5); MEAN CORPUSCULAR HEMOGLOBIN 27.8 pg (27.0-33.4); MEAN CORPUSCULAR HGB CONC 33.1 g/dL (32.0-36.0); MEAN CORPUSCULAR VOLUME 84 fl (80-97); MONOCYTES % (AUTO) 11.6 % (3-13); PLATELET COUNT 193 10^3/uL (150-450); RED BLOOD COUNT 3.38 10^6/uL (3.72-5.28); RED CELL DISTRIBUTION WIDTH 15.2 % (11.5-14.0); SEGMENTED NEUTROPHILS % (AUTO) 52.4 % (42-78); TOTAL CELLS COUNTED % (AUTO) 100 %; WHITE BLOOD COUNT 7.7 10^3/uL (4.0-10.5)
[2019-02-12 10:36] LABS: APPEARANCE,URINE SLIGHTLY-CLOUDY; BILIRUBIN,URINE NEGATIVE (NEGATIVE); COLOR,URINE STRAW; GLUCOSE, URINE NEGATIVE (NEGATIVE); KETONES,URINE NEGATIVE (NEGATIVE); LEUKOCYTE ESTERASE,URINE MODERATE (NEGATIVE); NITRITE,URINE NEGATIVE (NEGATIVE); PROTEIN,URINE NEGATIVE (NEGATIVE); URINE SPECIFIC GRAVITY 1.008; UROBILINOGEN,URINE NEGATIVE mg/dL (<2.0)
[2019-02-12 10:51] LABS: URINE AMPHETAMINES SCREEN NEGATIVE; URINE BARBITURATES SCREEN NEGATIVE; URINE BENZODIAZEPINES SCREEN NEGATIVE; URINE COCAINE SCREEN NEGATIVE; URINE MARIJUANA (THC) SCREEN NEGATIVE; URINE METHADONE SCREEN NEGATIVE; URINE PHENCYCLIDINE SCREEN NEGATIVE
[~2019-02-14 05:03] MED LIST: CEFAZOLIN SODIUM 2 GM in DEXTROSE 5%-WATER 100 ML IV PRN; LACTATED RINGERS 1000 ML IV PRN; LIDOCAINE 0.5% INJ-PF (5 MG/ML) 50 ML SDV SUBCUT PRN
[2019-02-14] MEDS ORDERED: RINGERS SOLUTION,LACTATED 2,000 ML IV ONE (06:30)
[2019-02-14] MEDS ORDERED: OXYTOCIN/NORMAL SALINE 20 UNIT/1,000 ML RTUINJ ONE ×2 (07:02→09:18)
[2019-02-14] MEDS ORDERED: PROPOFOL INJ 200 MG/20 ML VIAL IV ONE (07:06)
[2019-02-14] MEDS ORDERED: EPHEDRINE SULFATE INJ 50 MG/1 ML AMPULE ONE (07:07)
[2019-02-14] MEDS ORDERED: ONDANSETRON HCL INJ/PF 4 MG/2 ML SDV ONE (07:07)
[2019-02-14] MEDS ORDERED: MIDAZOLAM 2 MG/2 ML INJ ONE (07:07)
[2019-02-14] MEDS ORDERED: FENTANYL CITRATE INJ/PF 100 MCG/2 ML AMPUL ONE (07:07)
[2019-02-14] MEDS ORDERED: OXYTOCIN 10 UNIT/ML VIAL ONE (07:07)
[2019-02-14] MEDS ORDERED: CEFAZOLIN INJ 1 GM VIAL ONE (07:14)
[2019-02-14] MEDS ORDERED: DIPHENHYDRAMINE HCL 50 MG/ML VIAL IV PRN (07:19)
[2019-02-14] MEDS ORDERED: MORPHINE SULFATE 10 MG/ML INJ IV PRN (07:19)
[2019-02-14] MEDS ORDERED: ONDANSETRON HCL INJ/PF 4 MG/2 ML SDV IV PRN (07:19)
[2019-02-14] MEDS ORDERED: FENTANYL CITRATE INJ/PF 100 MCG/2 ML AMPUL IV PRN ×3 (07:19)
[2019-02-14] MEDS ORDERED: PROMETHAZINE HCL INJ 25 MG/1 ML VIAL IV PRN ×2 (07:19)
[2019-02-14] MEDS ORDERED: MEPERIDINE HCL/PF INJ 25 MG/1 ML DISP.SYRIN IV PRN (07:19)
[2019-02-14] MEDS ORDERED: OXYCODONE-ACETAMINOPHEN 5-325 MG TABLET PO PRN (08:42)
[2019-02-14] MEDS ORDERED: ACETAMINOPHEN 1,000 MG/100 ML RTUPB IV PRN (08:42)
[2019-02-14] MEDS ORDERED: SIMETHICONE 80 MG TAB.CHEW PO PRN (08:42)
[2019-02-14] MEDS ORDERED: OXYTOCIN/NORMAL SALINE 20 UNIT/1,000 ML RTUINJ IV PRN (08:42)
[2019-02-14] MEDS ORDERED: ACETAMINOPHEN 325 MG TABLET PO PRN (08:42)
[2019-02-14] MEDS ORDERED: RINGERS SOLUTION,LACTATED 1,000 ML IV PRN (08:42)
[2019-02-14] MEDS ORDERED: MEASLES,MUMPS&RUBELLA VACC/PF 0.5 ML VIAL SUBCUT PRN (08:42)
[2019-02-14] MEDS ORDERED: DIPH/PERTUSS(ACELL)/TETANUS VAC/PF 0.5 ML SYR (>=10YO) IM PRN (08:42)
--- NOTE | 2019-02-14 08:53 | PDOC DELIVERY SUMMARY ---
Delivery Summary - Maternal MELANY: 02/21/19
--- NOTE | 2019-02-14 08:55 | Operative Report ---
Operative Report DATE OF SURGERY: 02/14/19 PREOPERATIVE DIAGNOSIS: Patient desires repeat to prevent risk of chiara rine rupture POSTOPERATIVE DIAGNOSIS: Same OPERATION: Repeat via low transverse uterine incision SURGEON: ASHISH ROCK ANESTHESIA: Spinal TISSUE REMOVED OR ALTERED: Placenta COMPLICATIONS: None ESTIMATED BLOOD LOSS: 500 INTRAOPERATIVE FINDINGS: Viable male infant PROCEDURE: Patient was taken to the OR and placed in supine position after her spinal anesthesia. She is prepared and draped in sterile fashion. Larios was placed for drainage of the bladder. Low transverse incision was made and carried down the level of the fascia. The fascial incision was made with knife and extended bilaterally with curved Vásquez scissors. The fascia was off the rectus muscles using sharp and blunt dissection. The rectus muscles are in the midline. The peritoneum was entered without incident. Bladder blade was placed in uterine segment was identified. A low transverse incision was made creating a bladder flap. Bladder blade was placed low transverse uterine incision was made with the knife and extended with fingertips. The baby was delivered with some fundal pressure. Mouth and nose were suctioned free. The cord is doubly clamped and cut. Baby is passed off to the belt machine operator in attendance. The placenta was manually extracted with trailing membranes. The uterus was externalized wrapped in a moist lap sponge. Uterine contents wiped free. Uterus was closed with a running locking layer of 0 chromic suture using the second layer to imbricate the first completing a double layer closure of the uterus. The serosa was closed with a running 2-0 chromic stitch. The pelvis was irrigated and suctioned free of fluid the uterus was replaced in the abdomen. The abdominal wall peritoneum was closed with running 2-0 chromic stitch. Fascia was closed with a running 0 Vicryl in 2 segments. Sujey's layer was brought together with 0 plain gut stitch and the skin was closed with running subcuticular 4-0 undyed Vicryl stitch. The wound was dressed mother and baby did well.
[2019-02-14] MEDS: FENTANYL CITRATE INJ/PF 100 MCG/2 ML AMPUL ONE ×3 (09:30→10:15)
[2019-02-14] MEDS: HYDROMORPHONE HCL INJ/PF 2 MG/ML AMPULE IV PRN ×2 (11:22→22:44)
[2019-02-14] MEDS: PRENATAL VITAMIN W DHA CAPSULE PO SCH (11:29)
[2019-02-14] MEDS: DOCUSATE SODIUM 100 MG CAPSULE PO SCH ×2 (11:29→17:25)
[2019-02-14] MEDS: IBUPROFEN 800 MG TABLET PO SCH (13:54)
[2019-02-14] MEDS: KETOROLAC TROMETHAMINE INJ/PF 30 MG/1 ML SDV IV SCH ×2 (14:01→21:54)
[2019-02-14] MEDS: PROMETHAZINE HCL INJ 25 MG/1 ML VIAL IV PRN (14:04)
[2019-02-14] MEDS: OXYCODONE-ACETAMINOPHEN 5-325 MG TABLET PO PRN (19:06)
[2019-02-15] MEDS: IBUPROFEN 800 MG TABLET PO SCH ×6 (00:54→23:30)
[2019-02-15] MEDS: KETOROLAC TROMETHAMINE INJ/PF 30 MG/1 ML SDV IV SCH (06:55)
[2019-02-15] MEDS: OXYCODONE-ACETAMINOPHEN 5-325 MG TABLET PO PRN ×4 (06:56→20:00)
[2019-02-15 08:09] LABS: HEMATOCRIT 24.7 % (36.0-47.0); MEAN CORPUSCULAR HEMOGLOBIN 27.1 pg (27.0-33.4); MEAN CORPUSCULAR HGB CONC 31.8 g/dL (32.0-36.0); MEAN CORPUSCULAR VOLUME 85 fl (80-97); PLATELET COUNT 154 10^3/uL (150-450); RED BLOOD COUNT 2.89 10^6/uL (3.72-5.28); RED CELL DISTRIBUTION WIDTH 15.3 % (11.5-14.0); WHITE BLOOD COUNT 14.4 10^3/uL (4.0-10.5)
[2019-02-15 08:22] LABS: HEMOGLOBIN 7.8 g/dL (12.0-15.5)
[2019-02-15] MEDS: ASCORBIC ACID 500 MG TABLET PO SCH ×2 (10:33→17:21)
[2019-02-15] MEDS: FERROUS SULFATE 325 MG TABLET PO SCH ×3 (10:33→17:20)
[2019-02-15] MEDS: PRENATAL VITAMIN W DHA CAPSULE PO SCH (10:33)
[2019-02-15] MEDS: DOCUSATE SODIUM 100 MG CAPSULE PO SCH ×2 (10:34→17:20)
--- NOTE | 2019-02-15 11:17 | PDOC PROGRESS REPORT ---
Subjective Progress Note for:: 02/15/19 Subjective:: 24 yo s/p RCS -POD # 1 C/o abdominal pain not relieved by PO pain medication. NOT at incision but around umbilicus at site of prior umbilical hernia repair. In this area she sees bulge and it is too painful for her to touch. She is tolerating PO and reports p assing gas. Also complaining of a tender node in axilla -right that is getting larger over last 2 months. Reason For Visit: REPEAT Physical Exam - Physical Exam Vital Signs: Temp Pulse Resp BP Pulse Ox 98.6 F 88 16 112/62 99 02/15/19 08:16 02/15/19 08:16 02/15/19 08:16 02/15/19 08:16 02/15/19 08:16 Intake & Output 02/14/19 02/15/19 02/16/19 06:59 06:59 06:59 Intake Total 0 2500 Output Total 0 5222 Balance 0 -2722 Weight 80.74 kg General appearance: PRESENT: cooperative Respiratory exam: PRESENT: clear to auscultation yamil Cardiovascular exam: PRESENT: RRR, +S1, +S2 GI/Abdominal exam: PRESENT: guarding, hypoactive bowel sounds - Abd soft and irregular bulge over umilical area measuring 8-10 cm in size. Has appearance of bowel loop. Painful to touch and she is guarding. Unable to appreciate defect in fascia as she is too tender. It is soft in this area. Incision from CS dry and intact. No drainage. Non-tender in this area., soft, tenderness Extremities exam: PRESENT: other - Palpapable mass in right axilla approximately 2 cm size. It is not tender and is mobile. NO redness. No mass palpable in right breast Result Laboratory Results: 02/15/19 07:11 02/15/19 07:11 WBC 14.4 H RBC 2.89 L Hgb 7.8 L Hct 24.7 L MCV 85 MCH 27.1 MCHC 31.8 L RDW 15.3 H Plt Count 154 Assessment & Plan - Time Time Spent with patient: 15-24 minutes Medications reviewed and adjusted accordingly: Yes Disposition: -Surgery consult for painful bulge of abdomen at umbilicus. Hx of prior umbilical hernia repair with mesh. Recurrent umbilical hernia?? possible incarceration?? Tolerated PO this am and is passing gas. Discussed with Dr. Ho -Right axillary mass -2 cm size will get US to evaluate, but will defer until after above issue resolved. -Routine care otherwise. VB light. Inciscion looks d/i. Breast feeding
--- NOTE | 2019-02-15 12:46 | PDOC CONSULTATION ---
Consultation Consult Date: 02/15/19 Provider Consulted: MARTIN AQUINO Consult reason:: umbilical pains on a previous hernia repair site History of Present Illness Admission Date/PCP: 02/14/19 05:03 JOSE JACOBS MD History of Present Illness: JALEN ELIZONDO is a 24 year old female who had a previous repair of umbilical hernia on 12/29/[address] Dill had section yesterday and today complaining of pain along the umbilical area. Patient able to take liquids well though she claims she had some nausea. She also been passing flatus. Past Medical History Cardiac Medical History: Denies: Pulmonary Embolism Pulmonary Medical History: Reports: Asthma - MOD, Sleep Apnea - DOES NOT USE CPAP Denies: Tuberculosis Neurological Medical History: Reports: Seizures - A CHILD GI Medical History: Reports: Gastroesophageal Reflux Disease Denies: Hiatal Hernia Psychiatric Medical History: Reports: Depression Hematology: Reports: Anemia Denies: Hemophilia, Sickle Cell Disease Infectious Medical History: Denies: HIV Past Surgical History Past Surgical History: Reports: Adenoidectomy, Section, Tonsillectomy Social History Smoking Status: Never Smoker Electronic Cigarette use?: No Last Time Smoked: 05/2018 Frequency of Alcohol Use: None Hx Recreational Drug Use: Yes Drugs: Marijuana Hx Prescription Drug Abuse: No - Advance Directive Resuscitation Status: Full Code Family History Family History: Reviewed & Not Pertinent, Other - Adopted Parental Family History Reviewed: Yes Children Family History Reviewed: No Sibling(s) Family History Reviewed.: No Medication/Allergy Home Medications: 95/Iron Fum/Folic/Dha [ + Dha Combo Pack] 1 each PO DAILY 11/02/18 Allergies/Adverse Reactions: cantaloupe Allergy (Intermediate, Uncoded 02/14/19 13:57) Review of Systems Constitutional: PRESENT: as per HPI Gastrointestinal: PRESENT: as per HPI Physical Exam Vital Signs: Temp Pulse Resp BP Pulse Ox 97.8 F 83 16 114/63 99 02/15/19 11:35 02/15/19 11:35 02/15/19 11:35 02/15/19 11:35 02/15/19 11:35 Intake & Output 02/14/19 02/15/19 02/16/19 06:59 06:59 06:59 Intake Total 0 2500 Output Total 0 5222 Balance 0 -2722 Weight 80.74 kg General appearance: PRESENT: mild distress Cardiovascular exam: PRESENT: RRR GI/Abdominal exam: PRESENT: distended, soft, tenderness - Along the umbilical area. There appears to be a recurrence of the hernia but no evidence of incarceration. I can feel a bowel to the left side of the umbilical area Neurological exam: PRESENT: alert, oriented to person, oriented to place, oriented to time, oriented to situation Skin exam: PRESENT: mottled, warm Results Laboratory Results: 02/15/19 07:11 02/15/19 07:11 WBC 14.4 H RBC 2.89 L Hgb 7.8 L Hct 24.7 L MCV 85 MCH 27.1 MCHC 31.8 L RDW 15.3 H Plt Count 154 Assessment & Plan - Diagnosis (1) Delivery by section Is this a current diagnosis for this admission?: Yes (2) Hernia of abdominal wall Is this a current diagnosis for this admission?: Yes - Time Time Spent: 30 to 50 Minutes - Inpatient Certification Medical Necessity: Need for Pain Control - Plan Summary Plan Summary: There appears to be recurrence of the umbilical hernia but no definite evidence of incarceration or obstruction at this time. She can be discharged from the section and just be followed up in the surgical clinic this week. If she is still in the hospital tomorrow I will ask Dr. Dill to evaluate her.
[2019-02-15] MEDS: PROMETHAZINE HCL INJ 25 MG/1 ML VIAL IV PRN (23:30)
[2019-02-16] MEDS: OXYCODONE-ACETAMINOPHEN 5-325 MG TABLET PO PRN ×3 (04:41→19:31)
[2019-02-16] MEDS: IBUPROFEN 800 MG TABLET PO SCH ×3 (05:59→17:19)
[2019-02-16] MEDS: PRENATAL VITAMIN W DHA CAPSULE PO SCH (09:33)
[2019-02-16] MEDS: FERROUS SULFATE 325 MG TABLET PO SCH ×3 (09:33→17:20)
[2019-02-16] MEDS: DOCUSATE SODIUM 100 MG CAPSULE PO SCH ×2 (09:33→17:19)
[2019-02-16] MEDS: ASCORBIC ACID 500 MG TABLET PO SCH ×2 (09:34→17:19)
--- NOTE | 2019-02-16 09:47 | PDOC PROGRESS REPORT ---
Subjective Progress Note for:: 02/16/19 Subjective:: Patient reports having more diffuse abdominal pain. She is tolerating a diet. Reason For Visit: REPEAT Physical Exam Vital Signs: Temp Pulse Resp BP Pulse Ox 98.2 F 83 16 119/60 100 02/16/19 08:28 02/16/19 08:28 02/16/19 08:28 02/16/19 08:28 02/16/19 08:28 Intake & Output 02/15/19 02/16/19 02/17/19 06:59 06:59 06:59 Intake Total 2500 Output Total 5222 Balance -2722 General appearance: PRESENT: no acute distress GI/Abdominal exam: PRESENT: other - This precludes viable examination. Distended consistent with abdomen; there is diffuse tenderness but no rigidity. I cannot appreciate a mass at the umbilicus, however patient tenderness precludes reliable examination Results Laboratory Results: 02/15/19 07:11 Assessment & Plan - Diagnosis (1) Abdominal pain Is this a current diagnosis for this admission?: Yes Plan: Impression: Abdominal pain, involving abdominal wall, now generalized; history of intraperitoneal pariatex mesh insertion by Dr. Dill November 2015. Abdominal wall flat at time of this a.m. examination. Recommendations: 1. My impression is that the patient does not have an incarceration of the abdominal wall. However I would like to perform a focused ultrasound of the abdominal wall to evaluate this area. 2. Continue expected care. 3. No indication for surgical intervention at this moment. (2) Delivery by section Is this a current diagnosis for this admission?: Yes - Time Time Spent with patient: 15-24 minutes Smoking Cessation Education: 3 to 10 minutes
--- NOTE | 2019-02-16 12:28 | PDOC PROGRESS REPORT ---
Subjective-OB Progress Note for:: 02/16/19 Subjective: Pt resting, she reports continued abd pain/tenderness in all quadrants. She is more distended today. Reports +flatus, reg diet and light bleeding. Voids without difficulty, no BM yet. No n/v. Seen by Dr. Dill today. Rt breast mass 2cm at 11 o'clock nontender but pt states it has gotten bigger in the last two months. Scheduled to have biopsy tomorrow per Dr. Teixeira's orders. Physical Exam (OB) Vital Signs: Temp Pulse Resp BP Pulse Ox 97.7 F 68 16 110/56 L 99 02/16/19 11:35 02/16/19 11:35 02/16/19 11:35 02/16/19 11:35 02/16/19 11:35 Intake & Output 02/15/19 02/16/19 02/17/19 06:59 06:59 06:59 Intake Total 2500 Output Total 5222 Balance -2722 - General General Appearance: Appears well Note:: Rt breast mass about 2cm upper quadrant 11o'clock, firm, mobile, round and nontender - PIH/Pre-Eclampsia DTR's: 1 + Clonus: Negative Headache: Absent Epigastric Pain: No Visual Changes: No - Dressing Removed: No Incision: Dressing Closure Type: opsite - Lochia Lochia Amount: Small 10-25 ml Lochia Color: Rubra/Red - Abdomen Description: Tender, Soft Hernia Present: Yes - surgical instrument mechanic aware Fundal Description: Firm Abdomen Note: will not allow us to assess fundal height d/t tenderness Objective-Diagnostic Laboratory: 02/15/19 07:11 Assessment and Plan(PN) - Assessment and Plan (1) Abdominal pain Qualifiers: Abdominal location: generalized Qualified Code(s): R10.84 - Generalized abdominal pain Is this a current diagnosis for this admission?: Yes (2) Delivery by section Is this a current diagnosis for this admission?: Yes (3) Hernia of abdominal wall Is this a current diagnosis for this admission?: Yes (4) Mass of right axilla Is this a current diagnosis for this admission?: Yes (5) Anemia Qualifiers: Anemia type: unspecified type Qualified Code(s): D64.9 - Anemia, unspecified Is this a current diagnosis for this admission?: Yes (7) Limited care Qualifiers: Trimester: unspecified trimester Qualified Code(s): O09.30 - Supervision of with insufficient care, unspecified trimester Is this a current diagnosis for this admission?: Yes - Time Spent with Patient Time with patient: Less than 15 minutes Medications reviewed and adjusted accordingly: Yes - Disposition Anticipated Discharge: Home Within: Other - to be determined by abdominal and breast findings
--- NOTE | 2019-02-16 13:47 | Operative Report ---
Operative Report DATE OF SURGERY: 02/16/19 PREOPERATIVE DIAGNOSIS: Status post section with bulging abdominal wal l; history of intraperitoneal mesh placement at the umbilicus for hernia repair 2015 POSTOPERATIVE DIAGNOSIS: Same with hernia above abdominal wall mesh; no evidence of small bowel incarceration OPERATION: Focused ultrasound of the abdominal wall SURGEON: YOVANNY DILL ANESTHESIA: Other - None TISSUE REMOVED OR ALTERED: None COMPLICATIONS: None INTRAOPERATIVE FINDINGS: see Below PROCEDURE: The patient was examined at bedside again, and bedside ultrasonography performed by Dr. Dill. Physical exam findings demonstrate a post gravid uterus, with some eventration of the anterior abdominal wall in the midline approximately 8 cm above the umbilicus. Gel was placed on the anterior abdominal wall, and the area was scanned with a variable frequency linear transducer. Findings were significant for bulging veins above the umbilicus and the subcutaneous tissue. In the area of bulge. I do not see any loops of bowel above the fascia. The remainder of the abdomen was not scanned. Impression: no ultrasonographic evidence of incarcerated small bowel above the previously placed intraperitoneal mesh for treatment of umbilical hernia Discussion and recommendations: 1. I discussed the above with patient, and Dr. Ludwig, batter mixer helper. There is no immediate indication for surgical intervention. She may have an area of herniation above her previously placed mesh. This can be addressed on an outpatient basis. 2. I believe she may benefit from wearing an abdominal binder and this was discussed with the team. 3. Surgery will sign off at this time; please reconsult if clinically indicated.
[2019-02-17] MEDS: IBUPROFEN 800 MG TABLET PO SCH ×3 (00:12→12:47)
[2019-02-17] MEDS: OXYCODONE-ACETAMINOPHEN 5-325 MG TABLET PO PRN (08:52)
[2019-02-17] MEDS: PRENATAL VITAMIN W DHA CAPSULE PO SCH (09:55)
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
[2019-02-17] MEDS: FERROUS SULFATE 325 MG TABLET PO SCH (09:56)
[2019-02-17] MEDS: DOCUSATE SODIUM 100 MG CAPSULE PO SCH (09:56)
[2019-02-17] MEDS: ASCORBIC ACID 500 MG TABLET PO SCH (09:56)
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
[2019-02-17 12:32] VITALS: BP 132/75
== END 2019-02-17 13:05 | disposition home or self-care (01) | DRG 788 ==
LOC: 2N 05:03
PROVIDERS: ADMIT Obstetrics & Gynecology; ATTEND Obstetrics & Gynecology
PROC: 10D00Z1 Extraction of Products of Conception, Low, Open Approach (ICD-10-PCS; principal; 2019-02-14 07:45)
PROC: BW40ZZZ Ultrasonography of Abdomen (ICD-10-PCS; 2019-02-16)
DX: O34.211 Maternal care for low transverse scar from previous cesarean delivery (principal); Z37.0 Single live birth; O99.89 Other specified diseases and conditions complicating pregnancy, childbirth and the puerperium; K43.9 Ventral hernia without obstruction or gangrene; O99.344 Other mental disorders complicating childbirth; F31.9 Bipolar disorder, unspecified; O99.334 Smoking (tobacco) complicating childbirth; F17.200 Nicotine dependence, unspecified, uncomplicated; O99.02 Anemia complicating childbirth; D64.9 Anemia, unspecified; Z91.410 Personal history of adult physical and sexual abuse; Z3A.39 39 weeks gestation of pregnancy; Z91.018 Allergy to other foods; Z28.21 Immunization not carried out because of patient refusal
CPT/HCPCS: 1961; 36415; 80307; 81001; 85025; 85027; 86850; 86900; 86901; 94799; J1170; J1885; J2250; J2405; J2550; J2590; J2704; J3010; J3490; J7120

== ENCOUNTER 2019-03-06 21:56 | Emergency (ER) | payer MEDICAID ==
[2019-03-06] MEDS ORDERED: OXYCODONE-ACETAMINOPHEN 5-325 MG TABLET PO ONE (22:38)
--- NOTE | 2019-03-06 22:54 | ER Document Report ---
ED Medical Screen (RME) - General Chief Complaint: Post Surgical Bleeding Stated Complaint: C SECTION SITE BLEEDING/PAINFUL URINATION Time Seen by Provider: 03/06/19 22:34 Primary Care Provider: JOSE JACOBS MD [Primary Care Provider] - Follow up as needed TRAVEL OUTSIDE OF THE [place] IN LAST 30 DAYS: No - HPI Notes: 03/06/19 23:27 24-year-old female to the emergency department with complaints of lower abdominal pain to her wound that is been getting worse for the past week with associated bleeding. She also states that she is having painful urination. She states that Dr. Ludwig performed her . This is her second and second baby. She states that she has been feeling hot and cold but has not measured a temperature. States that she is been feeling a little dizzy as well. She states that she attempted to get a closer appointment for [facility] follow-up but could not be seen until 13 March. She denies any other complaints. Performed a medical screening exam on the patient. I have ordered labs to help expedite her care. Brief exam illustrates dried blood to dressing were C- section was performed. She is tenderness to palpation in the area into the suprapubic abdomen. We will have her further evaluated and dispositioned by main side provider. - Related Data Allergies/Adverse Reactions: cantaloupe Allergy (Intermediate, Uncoded 02/14/19 13:57) Past Medical History - Past Medical History Cardiac Medical History: Denies: Hx Pulmonary Embolism Pulmonary Medical History: Reports: Hx Asthma - MOD, Hx Sleep Apnea - DOES NOT USE CPAP Denies: Hx Tuberculosis Neurological Medical History: Reports: Hx Seizures - A CHILD . Denies: Hx Cerebrovascular Accident Renal/ Medical History: Denies: Hx Peritoneal Dialysis GI Medical History: Reports: Hx Gastroesophageal Reflux Disease. Denies: Hx Hiatal Hernia, Hx Ulcer Psychiatric Medical History: Reports: Hx Depression Infectious Medical History: Denies: Hx HIV Past Surgical History: Reports: Hx Abdominal Surgery - hernia repair, Hx Adenoidectomy, Hx Section, Hx Tonsillectomy, Hx Umbilical Hernia - Immunizations Immunizations up to date: Yes Hx Diphtheria, Pertussis, Tetanus Vaccination: Yes Physical Exam - Vital signs Vitals: Temp Pulse Resp BP Pulse Ox 98.6 F 101 H 22 H 111/73 98 03/06/19 22:31 03/06/19 22:31 03/06/19 22:31 03/06/19 22:31 03/06/19 22:31 Course - Vital Signs Vital signs: Temp Pulse Resp BP Pulse Ox 98.6 F 101 H 22 H 111/73 98 03/06/19 22:31 03/06/19 22:31 03/06/19 22:31 03/06/19 22:31 03/06/19 22:31 Doctor's Discharge - Discharge Referrals: JOSE JACOBS MD [Primary Care Provider] - Follow up as needed
[2019-03-06 23:25] LABS: ABSOLUTE BASOPHILS # (AUTO) 0.1 10^3/uL (0.0-0.2); ABSOLUTE EOSINOPHILS # (AUTO) 0.5 10^3/uL (0.0-0.6); ABSOLUTE LYMPHOCYTES (AUTO) 2.4 10^3/uL (0.5-4.7); ABSOLUTE MONOCYTES (AUTO) 0.8 10^3/uL (0.1-1.4); ABSOLUTE NEUT (AUTO) 2.4 10^3/uL (1.7-8.2); BASOPHILS % (AUTO) 1.1 % (0-2); EOSINOPHILS % (AUTO) 8.2 % (0-6); HEMOGLOBIN 11.1 g/dL (12.0-15.5); LYMPHOCYTES % (AUTO) 39.2 % (13-45); MEAN CORPUSCULAR HEMOGLOBIN 27.8 pg (27.0-33.4); MEAN CORPUSCULAR HGB CONC 32.6 g/dL (32.0-36.0); MEAN CORPUSCULAR VOLUME 85 fl (80-97); MONOCYTES % (AUTO) 12.4 % (3-13); PLATELET COUNT 353 10^3/uL (150-450); RED BLOOD COUNT 3.99 10^6/uL (3.72-5.28); RED CELL DISTRIBUTION WIDTH 16.7 % (11.5-14.0); SEGMENTED NEUTROPHILS % (AUTO) 39.1 % (42-78); TOTAL CELLS COUNTED % (AUTO) 100 %; WHITE BLOOD COUNT 6.1 10^3/uL (4.0-10.5)
[2019-03-06 23:40] LABS: ANION GAP 12 (5-19); APPEARANCE,URINE SLIGHTLY-CLOUDY; BILIRUBIN,URINE NEGATIVE (NEGATIVE); BLOOD UREA NITROGEN 14 mg/dL (7-20); CALCIUM 10.5 mg/dL (8.4-10.2); CARBON DIOXIDE 25 mmol/L (22-30); CHLORIDE 105 mmol/L (98-107); COLOR,URINE YELLOW; GLUCOSE 93 mg/dL (75-110); GLUCOSE, URINE NEGATIVE (NEGATIVE); KETONES,URINE NEGATIVE (NEGATIVE); LEUKOCYTE ESTERASE,URINE LARGE (NEGATIVE); NITRITE,URINE NEGATIVE (NEGATIVE); POTASSIUM 4.4 mmol/L (3.6-5.0); PROTEIN,URINE NEGATIVE (NEGATIVE); URINE SPECIFIC GRAVITY 1.034
[2019-03-07] MEDS ORDERED: CEPHALEXIN 500 MG CAPSULE PO ONE (06:06)
--- NOTE | 2019-03-07 06:09 | ER Document Report ---
ED General - General Chief Complaint: Post Surgical Bleeding Stated Complaint: C SECTION SITE BLEEDING/PAINFUL URINATION Time Seen by Provider: 03/06/19 22:34 Primary Care Provider: MARTIN AQUINO MD [[facility]] - Follow up as needed JOSE JACOBS MD [ACTIVE STAFF] - Follow up as needed TRAVEL OUTSIDE OF THE [place] IN LAST 30 DAYS: No - HPI Notes: This is a 24-year-old female who presents today with a complaint of some bleeding from her site. Patient recently had a . She describes slight tres-incisional discomfort. She also has a ventral wall hernia which is reducible. Patient also complains of some urinary frequency and urgency. She denies any fever or chills. She describes her symptoms as moderate. There are no obvious aggravating or relieving factors. - Related Data Allergies/Adverse Reactions: cantaloupe Allergy (Intermediate, Uncoded 02/14/19 13:57) Past Medical History - Social History Smoking Status: Never Smoker Family History: Reviewed & Not Pertinent, Other - Adopted Patient has suicidal ideation: No Patient has homicidal ideation: No - Past Medical History Cardiac Medical History: Denies: Hx Pulmonary Embolism Pulmonary Medical History: Reports: Hx Asthma - MOD, Hx Sleep Apnea - DOES NOT USE CPAP Denies: Hx Tuberculosis Neurological Medical History: Reports: Hx Seizures - A CHILD . Denies: Hx Cerebrovascular Accident Renal/ Medical History: Denies: Hx Peritoneal Dialysis GI Medical History: Reports: Hx Gastroesophageal Reflux Disease. Denies: Hx Hiatal Hernia, Hx Ulcer Psychiatric Medical History: Reports: Hx Depression Infectious Medical History: Denies: Hx HIV Past Surgical History: Reports: Hx Abdominal Surgery - hernia repair, Hx Adenoidectomy, Hx Section, Hx Tonsillectomy, Hx Umbilical Hernia - Immunizations Immunizations up to date: Yes Hx Diphtheria, Pertussis, Tetanus Vaccination: Yes Review of Systems - Review of Systems Constitutional: denies: Fever Cardiovascular: denies: Chest pain Gastrointestinal: denies: Abdomen distended, Diarrhea, Nausea, Blood streaked bowels, Black stools Genitourinary: Burning, Dysuria, Frequency -: Yes All other systems reviewed and negative Physical Exam - Vital signs Vitals: Temp Pulse Resp BP Pulse Ox 98.6 F 101 H 22 H 111/73 98 03/06/19 22:31 03/06/19 22:31 03/06/19 22:31 03/06/19 22:31 03/06/19 22:31 - General General appearance: Appears well, Alert - Respiratory Respiratory status: No respiratory distress Chest status: Nontender Breath sounds: Normal Chest palpation: Normal - Cardiovascular Rhythm: Regular Heart sounds: Normal auscultation Murmur: No - Abdominal Inspection: Normal Distension: No distension Bowel sounds: Normal Tenderness: Other - site looks healed. I did not appreciate any wound dehiscence. There is some serous drainage on the dressing that the patient had. There is no active drainage on my exam. There is slight tres-incisional tenderness. Patient also has a periumbilical ventral wall hernia which is very easily reducible. No other significant findings on abdominal exam. No warmth or erythema to suggest infection. RN was system architect during my evaluation. Organomegaly: No organomegaly - Extremities General upper extremity: Normal inspection, Nontender, Normal color, Normal ROM, Normal temperature General lower extremity: Normal inspection, Nontender, Normal color, Normal ROM, Normal temperature, Normal weight bearing. No: Renetta's sign - Neurological Neuro grossly intact: Yes Cognition: Normal Orientation: AAOx4 Howes Coma Scale Eye Opening: Spontaneous Kt Coma Scale Verbal: Oriented Kt Coma Scale Motor: Obeys Commands Howes Coma Scale Total: 15 Speech: Normal Motor strength normal: LUE, RUE, LLE, RLE Sensory: Normal - Skin Skin Temperature: Warm Skin Moisture: Dry Skin Color: Normal Course - Re-evaluation Re-evalutation: 03/07/19 06:06 Clinical picture suggest postoperative seroma. No wound dehiscence. No evidence of infection. 2. Urinary tract infection. 3. Reducible hernia. Labs unremarkable. Will cover her UTI with Keflex. She is not breast-feeding. She is stable for discharge. - Vital Signs Vital signs: Temp Pulse Resp BP Pulse Ox 97.7 F 81 15 102/63 96 03/07/19 06:39 03/07/19 06:39 03/07/19 06:39 03/07/19 06:39 03/07/19 06:39 - Laboratory Result Diagrams: 03/06/19 23:10 03/06/19 23:10 Laboratory results interpreted by me: 03/06/19 03/06/19 03/06/19 23:10 23:10 23:10 Hgb 11.1 L Hct 34.0 L RDW 16.7 H Eos % (Auto) 8.2 H Seg Neutrophils % 39.1 L Calcium 10.5 H Urine Blood MODERATE H Urine Urobilinogen 4.0 H Ur Leukocyte Esterase LARGE H Discharge - Discharge Clinical Impression: Acute UTI, Ventral hernia without obstruction or gangrene Postoperative seroma Qualifiers: Surgical complication system/body Area: subcutaneous tissue Procedure type: dermatologic Qualified Code(s): L76.33 - Postprocedural seroma of skin and subcutaneous tissue following a dermatologic procedure Condition: Good Disposition: HOME, SELF-CARE Instructions: Cephalexin ([facility]), Hernia ([facility]), Urinary Tract Infection ([facility]) Additional Instructions: Follow-up with your car head liner installer as discussed for further evaluation if you C- section site. Return if any fever, wound opening or concerns. Follow-up with surgeon as referred for further management of your hernia. Take Tylenol as needed for pain. Prescriptions: Cephalexin Monohydrate [Keflex 500 mg Capsule] 500 mg PO TID 10 Days #30 capsule Referrals: JOSE JACOBS MD [ACTIVE STAFF] - Follow up as needed MARTIN AQUINO MD [[facility]] - Follow up as needed
[2019-03-07 06:41] VITALS: BP 102/63
== END 2019-03-07 06:40 | disposition home or self-care (01) ==
LOC: ER 21:56
DX: O90.2 Hematoma of obstetric wound (principal); O86.20 Urinary tract infection following delivery, unspecified; O99.63 Diseases of the digestive system complicating the puerperium; K43.9 Ventral hernia without obstruction or gangrene; O99.53 Diseases of the respiratory system complicating the puerperium; J45.909 Unspecified asthma, uncomplicated; O90.89 Other complications of the puerperium, not elsewhere classified; R35.0 Frequency of micturition; R39.15 Urgency of urination; R30.0 Dysuria; Z91.018 Allergy to other foods
CPT/HCPCS: 36415; 80048; 81001; 85025; 99283

== ENCOUNTER 2019-10-12 14:18 | Emergency (ER) | payer MEDICAID ==
[2019-10-12 15:06] LABS: ABSOLUTE BASOPHILS # (AUTO) 0.1 10^3/uL (0.0-0.2); ABSOLUTE EOSINOPHILS # (AUTO) 0.5 10^3/uL (0.0-0.6); ABSOLUTE LYMPHOCYTES (AUTO) 2.1 10^3/uL (0.5-4.7); ABSOLUTE MONOCYTES (AUTO) 0.7 10^3/uL (0.1-1.4); ABSOLUTE NEUT (AUTO) 4.1 10^3/uL (1.7-8.2); EOSINOPHILS % (AUTO) 7.3 % (0-6); HEMATOCRIT 34.9 % (36.0-47.0); HEMOGLOBIN 11.4 g/dL (12.0-15.5); LYMPHOCYTES % (AUTO) 28.3 % (13-45); MEAN CORPUSCULAR HEMOGLOBIN 28.6 pg (27.0-33.4); MEAN CORPUSCULAR HGB CONC 32.7 g/dL (32.0-36.0); MEAN CORPUSCULAR VOLUME 88 fl (80-97); MONOCYTES % (AUTO) 9.2 % (3-13); PLATELET COUNT 256 10^3/uL (150-450); RED BLOOD COUNT 3.99 10^6/uL (3.72-5.28); RED CELL DISTRIBUTION WIDTH 16.3 % (11.5-14.0); SEGMENTED NEUTROPHILS % (AUTO) 54.2 % (42-78); TOTAL CELLS COUNTED % (AUTO) 100 %; WHITE BLOOD COUNT 7.5 10^3/uL (4.0-10.5)
[2019-10-12 15:13] LABS: APPEARANCE,URINE CLOUDY; BILIRUBIN,URINE NEGATIVE (NEGATIVE); COLOR,URINE AMBER; GLUCOSE, URINE NEGATIVE (NEGATIVE); KETONES,URINE 20 mg/dL (NEGATIVE); LEUKOCYTE ESTERASE,URINE LARGE (NEGATIVE); NITRITE,URINE POSITIVE (NEGATIVE); PROTEIN,URINE 30 mg/dL (NEGATIVE)
[2019-10-12 15:21] LABS: URINE AMPHETAMINES SCREEN NEGATIVE; URINE BARBITURATES SCREEN NEGATIVE; URINE BENZODIAZEPINES SCREEN NEGATIVE; URINE COCAINE SCREEN NEGATIVE; URINE METHADONE SCREEN NEGATIVE; URINE PHENCYCLIDINE SCREEN NEGATIVE
[2019-10-12 15:26] LABS: ALBUMIN 4.5 g/dL (3.5-5.0); ALKALINE PHOSPHATASE 52 U/L (38-126); ANION GAP 9 (5-19); ASPARTATE AMINO TRANSFERASE 22 U/L (14-36); BILIRUBIN,TOTAL 0.8 mg/dL (0.2-1.3); BLOOD UREA NITROGEN 10 mg/dL (7-20); CALCIUM 9.7 mg/dL (8.4-10.2); CARBON DIOXIDE 22 mmol/L (22-30); CHLORIDE 107 mmol/L (98-107); GLUCOSE 82 mg/dL (75-110); POTASSIUM 3.4 mmol/L (3.6-5.0); TOTAL PROTEIN 7.9 g/dL (6.3-8.2)
[2019-10-12 15:28] LABS: URINE MARIJUANA (THC) SCREEN UNCONFIRMED POSITIVE
[2019-10-12 15:39] LABS: ACETAMINOPHEN < 10 ug/mL (10-30); ALCOHOL < 10 mg/dL (NONE DETECTED); SALICYLATE < 1.0 mg/dL (2.0-20.0)
[2019-10-12] MEDS ORDERED: CEPHALEXIN 500 MG CAPSULE PO ONE (17:15)
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
[2019-10-12] MEDS ORDERED: CHLORPROMAZINE HCL INJ 25 MG/1 ML AMPULE IM PRN (20:32)
[2019-10-12] MEDS ORDERED: BENZTROPINE MESYLATE 1 MG TABLET PO PRN (20:33)
[2019-10-12] MEDS ORDERED: OLANZAPINE 2.5 MG TABLET PO SCH (20:45)
[2019-10-12] MEDS: CEPHALEXIN 500 MG CAPSULE PO SCH (21:29)
--- NOTE | 2019-10-12 22:43 | EKG REPORT ---
SEVERITY:- NORMAL ECG - SINUS RHYTHM : Confirmed by: Pau Jackson MD 12-Oct-2019 22:42:26
[2019-10-12] MEDS: OLANZAPINE 2.5 MG TABLET PO SCH (22:48)
[2019-10-13] MEDS: CEPHALEXIN 500 MG CAPSULE PO SCH ×2 (06:14→13:56)
[2019-10-13 07:05] VITALS: BP 147/83
[2019-10-13] MEDS: OLANZAPINE 2.5 MG TABLET PO SCH (10:01)
--- NOTE | 2019-10-13 14:20 | ER Document Report ---
Doctor's Note Notes: 10/13/19 14:19 No acute distress at this time. She is resting quietly in the bed she voices no complaints at this time. Is attempting to call for a ride has been evaluated by the psychiatric team who are comfortable with patient plan for discharge on Zyprexa 2.5 mg p.o. twice daily and Cogentin 1 mg p.o. daily. She will be given a one-month prescription.
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
== END 2019-10-13 17:30 | disposition home or self-care (01) ==
LOC: ER 14:18
DX: F31.9 Bipolar disorder, unspecified (principal); R45.851 Suicidal ideations; N39.0 Urinary tract infection, site not specified; J45.909 Unspecified asthma, uncomplicated; Z63.8 Other specified problems related to primary support group; Z91.018 Allergy to other foods
CPT/HCPCS: 93005; 99285; 36415; 80307 ×4; 85025; 80053; 81001; 93010; J3490 ×2

== ENCOUNTER 2020-03-27 09:51 | Outpatient (CLI) | payer MEDICAID ==
--- NOTE | 2020-03-27 11:01 | RADIOLOGY REPORT (SQ) ---
EXAM DESCRIPTION: U/S OB LIMITED IMAGES COMPLETED DATE/TIME: 03/27/2020 10:50 am REASON FOR STUDY: no care, establish dates, placenta locati COMPARISON: No previous this TECHNIQUE: Limited transabdominal grayscale ultrasound for evaluation of specific requested obstetri arnaud parameters. LIMITATIONS: None. FINDINGS: CERVICAL LENGTH: 3.8 cm Closed. GAMAL: Total GAMAL 11.1 cm, LVP 3.5 x 6.9 cm. FHR: 149 beats per minute. PRESENTATION: Breech. PLACENTA: Posterior grade 1 ANATOMY: Detailed assessment not performed. Estimated weight by multiple measurements 80 7 g. Estimated gestational age by multiple measurements 25 weeks 4 days, estimated due date 07/06/2020 OTHER: No other significant findings. IMPRESSION: LIMITED OBSTETRICAL ULTRASOUND WITH MEASURED PARAMETERS DELINEATED ABOVE. Trimester of : Second trimester - 13 weeks 1 day to 27 weeks 6 days. TECHNICAL DOCUMENTATION: JOB ID: [id number] [employer]- All Rights Reserved Reading location - IP/workstation name: [email or web address]
[2020-03-27 11:05] LABS: BACTERIA (WET MOUNT) 4+ BACTERIA SEEN; EPITHELIALS (WET MOUNT) 3+ EPITHELIALS SEEN; RBCS (WET MOUNT) 1+ RBCS SEEN; T.VAGINALIS (WET MOUNT) NO TRICHOMONAS SEEN; WBCS (WET MOUNT) 4+ WBCS SEEN; YEAST (WET MOUNT) NO YEAST SEEN
[2020-03-27 11:11] LABS: APPEARANCE,URINE SLIGHTLY-CLOUDY; BILIRUBIN,URINE NEGATIVE (NEGATIVE); COLOR,URINE YELLOW; GLUCOSE, URINE NEGATIVE (NEGATIVE); KETONES,URINE NEGATIVE (NEGATIVE); LEUKOCYTE ESTERASE,URINE LARGE (NEGATIVE); NITRITE,URINE NEGATIVE (NEGATIVE); PROTEIN,URINE NEGATIVE (NEGATIVE); URINE SPECIFIC GRAVITY 1.013; UROBILINOGEN,URINE NEGATIVE mg/dL (<2.0)
[2020-03-27 11:29] LABS: URINE AMPHETAMINES SCREEN NEGATIVE; URINE BARBITURATES SCREEN NEGATIVE; URINE BENZODIAZEPINES SCREEN NEGATIVE; URINE COCAINE SCREEN NEGATIVE; URINE MARIJUANA (THC) SCREEN NEGATIVE; URINE METHADONE SCREEN NEGATIVE
[2020-03-27 11:29] LABS: ABSOLUTE BASOPHILS # (AUTO) 0.1 10^3/uL (0.0-0.2); ABSOLUTE EOSINOPHILS # (AUTO) 0.7 10^3/uL (0.0-0.6); ABSOLUTE LYMPHOCYTES (AUTO) 2.5 10^3/uL (0.5-4.7); ABSOLUTE MONOCYTES (AUTO) 1.2 10^3/uL (0.1-1.4); ABSOLUTE NEUT (AUTO) 6.3 10^3/uL (1.7-8.2); BASOPHILS % (AUTO) 0.5 % (0-2); EOSINOPHILS % (AUTO) 6.7 % (0-6); HEMATOCRIT 28.4 % (36.0-47.0); HEMOGLOBIN 9.4 g/dL (12.0-15.5); LYMPHOCYTES % (AUTO) 23.4 % (13-45); MEAN CORPUSCULAR HEMOGLOBIN 29.7 pg (27.0-33.4); MEAN CORPUSCULAR HGB CONC 33.1 g/dL (32.0-36.0); MEAN CORPUSCULAR VOLUME 90 fl (80-97); MONOCYTES % (AUTO) 10.8 % (3-13); PLATELET COUNT 224 10^3/uL (150-450); RED BLOOD COUNT 3.17 10^6/uL (3.72-5.28); RED CELL DISTRIBUTION WIDTH 14.3 % (11.5-14.0); SEGMENTED NEUTROPHILS % (AUTO) 58.6 % (42-78); TOTAL CELLS COUNTED % (AUTO) 100 %; WHITE BLOOD COUNT 10.8 10^3/uL (4.0-10.5)
[2020-03-27 11:33] LABS: URINE PHENCYCLIDINE SCREEN NEGATIVE
[2020-03-27 12:40] LABS: CHLAM PCR NOT DETECTED (NOT DETECT)
[2020-03-29 13:36] LABS: HEPATITIS C VIRUS AB <0.1 s/co ratio (0.0-0.9)
[2020-03-29 15:08] LABS: HEPATITS B SURFACE ANTIGEN Negative (Negative)
== END 2020-03-27 13:55 | disposition home or self-care (01) ==
LOC: LC 09:51
PROVIDERS: ATTEND Obstetrics & Gynecology
DX: Z34.90 Encounter for supervision of normal pregnancy, unspecified, unspecified trimester (principal)
CPT/HCPCS: 36415; 76815; 80307; 81001; 85025; 86592; 86701; 86803; 86804; 86850; 86900; 86901; 87210; 87340; 87491; 87591; 94760

== ENCOUNTER 2020-04-19 16:12 | Outpatient (CLI) | payer MEDICAID ==
[2020-04-19 16:57] LABS: APPEARANCE,URINE SLIGHTLY-CLOUDY; BILIRUBIN,URINE NEGATIVE (NEGATIVE); COLOR,URINE YELLOW; GLUCOSE, URINE NEGATIVE (NEGATIVE); KETONES,URINE NEGATIVE (NEGATIVE); LEUKOCYTE ESTERASE,URINE LARGE (NEGATIVE); NITRITE,URINE NEGATIVE (NEGATIVE); PROTEIN,URINE 30 mg/dL (NEGATIVE); URINE SPECIFIC GRAVITY 1.025
[2020-04-19 17:22] LABS: URINE AMPHETAMINES SCREEN NEGATIVE; URINE BARBITURATES SCREEN NEGATIVE; URINE BENZODIAZEPINES SCREEN NEGATIVE; URINE COCAINE SCREEN NEGATIVE; URINE MARIJUANA (THC) SCREEN NEGATIVE; URINE METHADONE SCREEN NEGATIVE; URINE PHENCYCLIDINE SCREEN NEGATIVE
[2020-04-19] MEDS ORDERED: FOSFOMYCIN TROMETHAMINE 3 GM PACKET PO ONE (18:30)
== END 2020-04-19 19:04 | disposition home or self-care (01) ==
LOC: LC 16:12
PROVIDERS: ATTEND Obstetrics & Gynecology
DX: O23.43 Unspecified infection of urinary tract in pregnancy, third trimester (principal); Z3A.28 28 weeks gestation of pregnancy
CPT/HCPCS: 81005; 80307; 59899; J3490; 87086